=== PATIENT | female | born 1975 | race Caucasian/White ===

== ENCOUNTER → 2019-11-27 15:24 | Outpatient (CLI) | payer OTHER, SELFPAY ==
[2019-11-27 16:28] LABS: Cholesterol 222 mg/dL (140-199); HDL Cholesterol 86 mg/dL (40-60); LDL Cholesterol Calculated 93 mg/dL (<100); Triglycerides 214 mg/dL (35-150)
[2019-11-27 17:04] LABS: Vitamin D 25 Hydroxy (D3) 20.4 ng/mL (30.0-100.0)
[2019-11-27 17:18] LABS: TSH w/ Reflex to FT4 1.41 uIU/mL (0.47-4.68)
== END ==
PROVIDERS: PCP Student in an Organized Health Care Education/Training Program; Referring Provider Student in an Organized Health Care Education/Training Program; Visit Provider Student in an Organized Health Care Education/Training Program
DX: Z13.220 Encounter for screening for lipoid disorders (principal); E55.9 Vitamin D deficiency, unspecified; Z98.84 Bariatric surgery status; F41.1 Generalized anxiety disorder; N95.1 Menopausal and female climacteric states; R63.5 Abnormal weight gain
CPT/HCPCS: 36415; 80061; 82306; 84443

== ENCOUNTER → 2020-01-24 15:21 | Outpatient (CLI) | payer OTHER, SELFPAY ==
--- NOTE | 2020-01-24 15:22 | DI.MG.S_ITS ---
BILATERAL DIGITAL SCREENING MAMMOGRAM 3D/2D WITH CAD: 01/24/2020 CLINICAL: Routine screening. Family history of breast cancer. Comparison is made to exams dated: 12/17/2018 mammogram, 07/01/2017 mammogram, and 07/09/2015 mammogram - [facility]. The tissue of both breasts is heterogeneously dense. This may lower the sensitivity of mammography. Current study was also evaluated with a Computer Aided Detection (CAD) system. No significant masses, calcifications, or other findings are seen in either breast. There has been no significant interval change. IMPRESSION: NEGATIVE There is no mammographic evidence of malignancy. A 1 year screening mammogram is recommended. This exam was interpreted at Station ID: [id number]. NOTE: For mammograms, a report in lay terms will be sent to the patient. Approximately 15% of breast malignancies will not be visualized mammographically. In the management of a palpable breast mass, a negative mammogram must not discourage biopsy of a clinically suspicious lesion. Electronically Signed By: Alex Rodriguez M.D., jr/jadyn:01/24/2020 16:05:34 letter sent: Normal Exam ACR BI-RADS Category 1: Negative [id number]
== END ==
PROVIDERS: PCP Student in an Organized Health Care Education/Training Program; Referring Provider Student in an Organized Health Care Education/Training Program; Visit Provider Student in an Organized Health Care Education/Training Program
DX: Z12.31 Encounter for screening mammogram for malignant neoplasm of breast (principal); Z80.3 Family history of malignant neoplasm of breast
CPT/HCPCS: 77063; 77067

== ENCOUNTER 2020-01-29 12:46 | Emergency (ER) | payer OTHER, SELFPAY ==
[2020-01-29] VITALS (9 sets, daily range): BP systolic 131–157; BP diastolic 66–88; PULSE 86–108; RESP 18; TEMP 36.9; O2SAT 94–100; BMI 38.4
--- NOTE | 2020-01-29 | DI.US.S_ITS ---
PROCEDURE: US ABDOMEN LIMITED INDICATIONS: RLQ PAIN, APPENDIX TECHNIQUE: Real-time focused scanning was performed of the abdomen with attention to the appendix, with image documentation. COMPARISON: None. FINDINGS: Appendix visualization: Not seen Appendix measurements: N/A Associated findings: Echogenic fat: Absent Appendiceal compressibility: N/A Appendicoliths: N/A Nearby free fluid: Absent Lymphadenopathy: Absent Tenderness on exam: Absent IMPRESSION: Nonvisualization of the appendix. No secondary signs of acute appendicitis. Dictated by: Bakari Reed M.D. on 01/29/2020 at 15:07 Approved by: Bakari Reed M.D. on 01/29/2020 at 15:09
[2020-01-29 13:28] LABS: RBC Urine None Seen (0-5/HPF)
[2020-01-29 13:36] LABS: Bacteria Urine Many (>30); Squamous Epithelial Cell Urine >30 /HPF (0-5/HPF); WBC Urine 5-10/HPF (0-5/HPF)
[2020-01-29 13:37] LABS: Culture Indicated Urine Cult Not Indicated
--- NOTE | 2020-01-29 13:52 | DI.US.S_ITS ---
PROCEDURE: US PELVIC COMPLETE INDICATIONS: RLQ PAIN / CYST / TORSION TECHNIQUE: Real-time scanning was performed of the pelvic organs, with image documentation. Additional endovaginal scanning was necessary due to incomplete visualization of the adnexal and endometrial structures by transabdominal scanning. COMPARISON: None. FINDINGS: Transabdominal scanning: Limited scanning through the kidneys shows no hydronephrosis. No pathologic free abdominal or pelvic fluid. Endovaginal scanning: Uterus: Uterus is normal in size at 12.2 x 5.4 x 6.2 cm. It is somewhat heterogeneous in appearance. The endometrium measures 7.8 mm in combined thickness. Ovaries: Right ovary measures 10.0 x 6.5 x 9.0 cm. There is intra-ovarian flow noted by duplex. There are 2 focal probable cystic structures immediately adjacent to each other. There is a cyst with minimal low-level internal echoes measuring approximately 7.1 x 5.4 x 5.0 cm. Immediately to the adjacent to this is a 2nd spherical structure which may represent a hemorrhagic cyst versus an endometrioma measuring 5.9 x 5.2 x 4.5 cm. Left ovary not visualized. IMPRESSION: 1. The right ovary is quite enlarged, secondary to 2 separate structures immediately adjacent to each other. 1 structure is likely a cyst with minimal debris measuring 7.1 cm in maximum diameter. The 2nd structure may represent a hemorrhagic cyst versus endometrioma, measuring 5.9 cm in maximum diameter. 2. No evidence of right ovarian torsion. Comment: Repeat ultrasound in 6-8 weeks is suggested Dictated by: Bakari Reed M.D. on 01/29/2020 at 15:09 Approved by: Bakari Reed M.D. on 01/29/2020 at 15:21
[2020-01-29 14:00] LABS: Add Manual Diff / Slide Review NO; Basophils Absolute Auto 0 /uL (0-100); Basophils Percent Auto 0.5 % (0-2); Eosinophils Absolute Auto 0 /uL (0-450); Eosinophils Percent Auto 0.2 % (2-4); Hematocrit 34.3 % (36-46); Hemoglobin 11.1 g/dL (12.0-16.0); Lymphocytes Absolute Auto 1600 /uL (1100-4500); Lymphocytes Percent Auto 15.9 % (25-40); Mean Corpuscular HGB Conc 32.2 % (30-36); Mean Corpuscular Hemoglobin 26.6 PG (26-34); Mean Corpuscular Volume 82.6 fL (80-100); Monocytes Absolute Auto 700 /uL (0-900); Monocytes Percent Auto 6.6 % (3-14); Neutrophils Absolute Auto 7700 /uL (1500-7000); Neutrophils Percent Auto 76.8 % (50-75); Platelet Count 302 X10^3/uL (150-400); Red Blood Cell Count 4.15 X10^6/uL (4.0-5.2); Red Cell Distribution Width 16.2 % (11.6-14.8)
[2020-01-29] MEDS: SODIUM CHLORIDE 0.9% 1,000 ML 1000 ML IV (14:00)
[2020-01-29 14:12] LABS: Lactate (Lactic Acid) 1.3 mmol/L (0.7-2.1)
[2020-01-29 14:13] LABS: BUN Creatinine Ratio 11.1 (6-22); Blood Urea Nitrogen 9 mg/dL (7-17); Calcium 9.6 mg/dL (8.4-10.2); Carbon Dioxide 22 mmol/L (22-32); Chloride 106 mmol/L (98-107); Estimated Glomerular Filt Rate > 60.0 mL/min (>60); Glucose 103 mg/dL (70-100); HEMOLYSIS < 15 (0-50); Potassium 4.1 mmol/L (3.4-5.1); Sodium 136 mmol/L (137-145)
--- NOTE | 2020-01-29 15:02 | ED_ITS ---
HPI - Female Genitourinary <ALIE Gallagher - Last Filed: 01/29/20 23:41> General Chief complaint: Urogenital-Female Stated complaint: pelvic pain Time Seen by Provider: 01/29/20 13:22 Source: patient Mode of arrival: Ambulatory Limitations: no limitations History of Present Illness HPI Narrative: This is a 44 year female, nonsmoker, has history of gastric bypass presents to ED with chief complain of pelvic pain and reports right lower quadrant near groin constant pain which started at 3:00 a.m. this morning and lasted till 930. Then it recurred at 12:30 p.m. and now she has been having intermittent stabbing discomfort. Patient reports she had similar symptoms 1 year ago which lasted only for our and did not seek medical evaluation at that time. Patient denies fever, chills, nausea or vomiting. Patient denies chest pain, breathing difficulty or dizziness. Patient denies urinary symptoms or any unusual vaginal discharge. She states pain worsens with movement and nothing to alleviate the pain. LMP was 01/18/20 and it has been irregular last 1 year. Patient reports no chance of at this time. Related Data Previous Rx's Medication Instructions Recorded hydrocodone 5 mg-acetaminophen 325 1 tab PO TID PRN 7 Days #21 tab 01/30/20 mg tablet Allergies Allergy/AdvReac Type Severity Reaction Status Date / Time tetracycline Allergy Mild Vomiting Verified 01/30/20 13:51 Review of Systems <ALIE Gallagher - Last Filed: 01/29/20 23:41> Review of Systems Narrative: General: Denies fever, chills, fatigue, malaise, sweats. HEENT: Denies sinus pain, ear pain, sore throat, difficulty swallowing, dizziness. Respiratory: Denies dyspnea, cough, wheezing, hemoptysis, sputum. Cardiovascular: Denies chest pain, palpitations, orthopnea, edema. Gastrointestinal: See HPI : HPI Musculoskeletal: Denies weakness, joint pain or bony pain. Skin: Denies rash, skin lesions, or other. Neurologic: Denies weakness, headache, numbness, change in speech, confusion, seizures, incoordination. Psychiatric: No concerning psychosocial issues. 12-point review of systems is negative except for those stated above. Patient History <ALIE Gallagher - Last Filed: 01/29/20 23:41> Surgical History History of gastric bypass (Acute) Smoking Status: Never smoker alcohol intake frequency: 0-2 drinks per day Substance Use Type: does not use Exam <ALIE Gallagher - Last Filed: 01/29/20 23:41> Narrative Exam Narrative: GEN: Alert, oriented x 3, well appearing and nourished, and in no acute distress. Head: Normal cephalic, atraumatic. No scalp or temporal tenderness, palpable mass or rash. EYES: Pupils are equal, round, and reactive to light and accommodation. Extraocular muscles are intact bilaterally. There is no subconjunctival hemorrhage, exudate and sclera non-icteric. ENT: Hearing grossly intact. Nose without bleeding, purulent discharge or deviation. Mucous membrane moist, no mucosal lesion. Throat without erythema, tonsillar hypertrophy or exudate. Uvula in midline, airway patent. Neck: Trachea in midline. No JVD, non-tender without lymphadenopathy. No masses or thyroid megaly. Supple, non-tender and no meningeal signs. CARDIAC: Normal regular rate and rhythm without murmurs, gallops, or rubs. No chest wall tenderness. No peripheral edema, cyanosis or pallor. Capillary refill is less than 2 seconds. RESPIRATORY: Lungs are clear to auscultate bilaterally. No cough, wheezes, rales, or rhonchi. No stridor, respiratory distress, increase work of breathing, or accessary muscle used. ABD: Abdomen soft, tender to palpate in right lower abdomen near groin region with rebound tenderness. No guarding. Bowel sounds are normal in all 4 qu adrants. There is no palpable masses or organomegaly. Positive Rovsing sign when palpated left quadrant. EXT: Full painless ROM of all extremities with no loss of sensation, strength, effusion or edema. SKIN: Warm, dry, normal color for patient. No erythema, lesions or rash over visible areas. BACK: Nontender without deformity or crepitance. No flank tenderness. NEUROLOGICAL: Alert and oriented to place, time and person. Sensation and motor function intact bilaterally. No facial droops, dysphasia. PSYCHIATRIC: Good judgement and reason, without hallucinations, abnormal affect or abnormal behaviors during the examination. Patient is not suicidal. Initial Vital Signs Initial Vital Signs: Vital Signs Temperature 98.5 F 01/29/20 13:04 Pulse Rate 108 H 01/29/20 13:04 Respiratory Rate 18 01/29/20 13:04 Blood Pressure 142/68 H 01/29/20 13:04 Pulse Oximetry 100 01/29/20 13:04 <Ariel Cristina MD - Last Filed: 02/04/20 07:26> Initial Vital Signs Initial Vital Signs: Vital Signs Temperature 98.5 F 01/29/20 13:04 Pulse Rate 108 H 01/29/20 13:04 Respiratory Rate 18 01/29/20 13:04 Blood Pressure 142/68 H 01/29/20 13:04 Pulse Oximetry 100 01/29/20 13:04 Scores <ALIE Gallagher - Last Filed: 01/29/20 23:41> GCS David coma scale eye opening: Spontaneous [place] coma scale verbal response: Orientated [place] coma scale motor response: Obey commands David coma scale total score: 15 qSOFA Altered Mental Status (GCS <15): No Respiratory rate greater than/equal to 22: No Systolic blood pressure less than or equal to 100: No qSOFA Total: 0 0-1 Not High Risk 1-3 High risk Course <ALIE Gallagher - Last Filed: 01/29/20 23:41> Orders Ordered: Discontinued Medications Sodium Chloride (Normal Saline 0.9%) 1,000 mls @ 1,000 mls/hr IV BOLUS ONE Stop: 01/29/20 14:51 Last Infusion: 01/29/20 15:20 Dose: 0 mls/hr Documented by: Admin: 01/29/20 14:00 Dose: 1,000 mls/hr Documented by: KARINA Vital Signs Vital signs: Vital Signs - 8 hr 01/29/20 16:00 01/29/20 16:30 01/29/20 17:00 Pulse Rate 90 90 86 Blood Pressure 131/66 Pulse Oximetry 97 98 100 <Ariel Cristina MD - Last Filed: 02/04/20 07:26> Orders Ordered: Discontinued Medications Sodium Chloride (Normal Saline 0.9%) 1,000 mls @ 1,000 mls/hr IV BOLUS ONE Stop: 01/29/20 14:51 Last Infusion: 01/29/20 15:20 Dose: 0 mls/hr Documented by: Admin: 01/29/20 14:00 Dose: 1,000 mls/hr Documented by: KARINA Vital Signs Vital signs: Vital Signs - 8 hr 01/29/20 16:00 01/29/20 16:30 01/29/20 17:00 Pulse Rate 90 90 86 Blood Pressure 131/66 Pulse Oximetry 97 98 100 MDM - Female Genitourinary <ALIE Gallagher - Last Filed: 01/29/20 23:41> Differential Diagnosis Differential diagnosis: Likely urinary tract infection, ovarian cyst, cystitis and other (Ovarian torsion, ovarian cyst,) Medical Records Attestation: I reviewed the patient's medical records. Lab Data Attestation: I reviewed the patient's lab results. Result diagrams: 01/29/20 13:45 01/29/20 13:45 Labs: Lab Results 01/29/20 01/29/20 01/29/20 Range/Units 13:15 13:45 13:45 WBC 10.0 (4.5-11.0) X10^3/uL RBC 4.15 (4.0-5.2) X10^6/uL Hgb 11.1 L (12.0-16.0) g/dL Hct 34.3 L (36-46) % MCV 82.6 (80-100) fL MCH 26.6 (26-34) PG MCHC 32.2 (30-36) % RDW 16.2 H (11.6-14.8) % Plt Count 302 (150-400) X10^3/uL Neut % (Auto) 76.8 H (50-75) % Lymph % (Auto) 15.9 L (25-40) % [place] % (Auto) 6.6 (3-14) % Eos % (Auto) 0.2 L (2-4) % Baso % (Auto) 0.5 (0-2) % Neut # (Auto) 7700 H (4474-8957) /uL Lymph # (Auto) 1600 (5016-2928) /uL [place] # (Auto) 700 (0-900) /uL Eos # (Auto) 0 (0-450) /uL Baso # (Auto) 0 (0-100) /uL Sodium 136 L (137-145) mmol/L Potassium 4.1 (3.4-5.1) mmol/L Chloride 106 (98-107) mmol/L Carbon Dioxide 22 (22-32) mmol/L BUN 9 (7-17) mg/dL Creatinine 0.81 (0.52-1.04) mg/dL Estimated GFR > 60.0 (>60) mL/min BUN/Creatinine Ratio 11.1 (6-22) Glucose 103 H (70-100) mg/dL Lactate (0.7-2.1) mmol/L Calcium 9.6 (8.4-10.2) mg/dL Urine RBC None seen (0-5/HPF) Urine WBC 5-10/hpf H (0-5/HPF) Ur Squamous Epith Cells >30 /hpf H (0-5/HPF) Urine Bacteria Many (>30) H (None) Ur Culture Indicated? Cult not indicated 01/29/20 Range/Units 13:45 WBC (4.5-11.0) X10^3/uL RBC (4.0-5.2) X10^6/uL Hgb (12.0-16.0) g/dL Hct (36-46) % MCV (80-100) fL MCH (26-34) PG MCHC (30-36) % RDW (11.6-14.8) % Plt Count (150-400) X10^3/uL Neut % (Auto) (50-75) % Lymph % (Auto) (25-40) % [place] % (Auto) (3-14) % Eos % (Auto) (2-4) % Baso % (Auto) (0-2) % Neut # (Auto) (3787-2941) /uL Lymph # (Auto) (3990-3655) /uL [place] # (Auto) (0-900) /uL Eos # (Auto) (0-450) /uL Baso # (Auto) (0-100) /uL Sodium (137-145) mmol/L Potassium (3.4-5.1) mmol/L Chloride (98-107) mmol/L Carbon Dioxide (22-32) mmol/L BUN (7-17) mg/dL Creatinine (0.52-1.04) mg/dL Estimated GFR (>60) mL/min BUN/Creatinine Ratio (6-22) Glucose (70-100) mg/dL Lactate 1.3 (0.7-2.1) mmol/L Calcium (8.4-10.2) mg/dL Urine RBC (0-5/HPF) Urine WBC (0-5/HPF) Ur Squamous Epith Cells (0-5/HPF) Urine Bacteria (None) Ur Culture Indicated? Point of Care Testing Test Results Negative Urine Dip Bedside Urine Glucose Negative Bedside Urine Bilirubin + 1 Bedside Urine Ketone +/- 5 Urine Specific [place] 1.030 Bedside Urine Occult Blood +/- Bedside Urine pH 5.5 Bedside Urine Protein +/- 15 Bedside Urine Urobilinogen - Negative Bedside Urine Nitrite - Negative Bedside Urine Leukocytes +/- 15 Esterase Imaging Data US-Pelvic: Radiologist's Impression: [address] [address] Ultrasound Report Signed Patient: Adele Coburn AMR#: [id number] : 1975Acct:[id number] Age/Sex: 44 / FDate of Service: 01/29/20 Loc: ED Accession Number: [id number] Procedure: US pelvic complete Ordering Provider: Gomez Jurado PROCEDURE: US PELVIC COMPLETE INDICATIONS: RLQ PAIN / CYST / TORSION TECHNIQUE: Real-time scanning was performed of the pelvic organs, with image documentation. Additional endovaginal scanning was necessary due to incomplete visualization of the adnexal and endometrial structures by transabdominal scanning. COMPARISON: None. FINDINGS: Transabdominal scanning: Limited scanning through the kidneys shows no hydronephrosis. No pathologic free abdominal or pelvic fluid. Endovaginal scanning: Uterus: Uterus is normal in size at 12.2 x 5.4 x 6.2 cm. It is somewhat heterogeneous in appearance. The endometrium measures 7.8 mm in combined thickness. Ovaries: Right ovary measures 10.0 x 6.5 x 9.0 cm. There is intra-ovarian flow noted by duplex. There are 2 focal probable cystic structures immediately adjacent to each other. There is a cyst with minimal low-level internal echoes measuring approximately 7.1 x 5.4 x 5.0 cm. Immediately to the adjacent to this is a 2nd spherical structure which may represent a hemorrhagic cyst versus an endometrioma measuring 5.9 x 5.2 x 4.5 cm. Left ovary not visualized. IMPRESSION: 1. The right ovary is quite enlarged, secondary to 2 separate structures immediately adjacent to each other. 1 structure is likely a cyst with minimal debris measuring 7.1 cm in maximum diameter. The 2nd structure may represent a hemorrhagic cyst versus endometrioma, measuring 5.9 cm in maximum diameter. 2. No evidence of right ovarian torsion. Comment: Repeat ultrasound in 6-8 weeks is suggested Dictated by: Bakari Reed M.D. on 01/29/2020 at 15:09 Approved by: Bakari Reed M.D. on 01/29/2020 at 15:21 [facility] Narrative Medical decision making narrative: This is a 44 year female who presents to ED with chief complain of pelvic pain and describing pain near right groin area since early this morning at 3:00 a.m.. She does not have additional urinary symptoms, or unusual vaginal discharge. She does not endorse constitutional symptoms. UA test indicates positive for urine leukocytes +/-15 with negative urine nitrite. Micro urine test shows 5-10 hpf WBC with many bacteria and >30 squamous epithelia cells which is likely contaminated sample. Urine culture is pending. No leukocytosis but very mildly elevated neutrophils. Unremarkable chemistry test. The patient received 1 L of normal saline infusion this patient was slightly tachycardia. Patient declined pain medications at this time. Blood pressure was mildly elevated. Patient is afebrile. Pelvic ultrasound shows enlarged two right side ovaries measuring 10. x 6.5 x 9.0 cm and additional 2 focal probably cystic structures immediately adjacent to each other measuring 7.1 x 5.4 x 5.0 and 5.9 x 5.2 x 4.5 cm which appears to be hemorrhagic cyst vs. endometrioma. There is no evidence of right ovarian cyst appreciated. He was recommended to repeat ultrasound in 6-8 weeks. Findings were shared with the patient and advised to follow-up with Dr. Pederson for repeat US and possible a referral to [facility] specialist. No antibiotic med ication has been prescribed for positive urine test and will wait for the urine culture. Patient discharged to home with small amount of [place] for severe pain and advised to take [id number] Tylenol and Motrin otherwise. Return precautions were discussed with patient and patient verbalized understanding and treatment plan. <Ariel Cristina MD - Last Filed: 02/04/20 07:26> Lab Data Labs: Lab Results 01/29/20 01/29/20 01/29/20 Range/Units 13:15 13:45 13:45 WBC 10.0 (4.5-11.0) X10^3/uL RBC 4.15 (4.0-5.2) X10^6/uL Hgb 11.1 L (12.0-16.0) g/dL Hct 34.3 L (36-46) % MCV 82.6 (80-100) fL MCH 26.6 (26-34) PG MCHC 32.2 (30-36) % RDW 16.2 H (11.6-14.8) % Plt Count 302 (150-400) X10^3/uL Neut % (Auto) 76.8 H (50-75) % Lymph % (Auto) 15.9 L (25-40) % [place] % (Auto) 6.6 (3-14) % Eos % (Auto) 0.2 L (2-4) % Baso % (Auto) 0.5 (0-2) % Neut # (Auto) 7700 H (3060-4945) /uL Lymph # (Auto) 1600 (9380-4444) /uL [place] # (Auto) 700 (0-900) /uL Eos # (Auto) 0 (0-450) /uL Baso # (Auto) 0 (0-100) /uL Sodium 136 L (137-145) mmol/L Potassium 4.1 (3.4-5.1) mmol/L Chloride 106 (98-107) mmol/L Carbon Dioxide 22 (22-32) mmol/L BUN 9 (7-17) mg/dL Creatinine 0.81 (0.52-1.04) mg/dL Estimated GFR > 60.0 (>60) mL/min BUN/Creatinine Ratio 11.1 (6-22) Glucose 103 H (70-100) mg/dL Lactate (0.7-2.1) mmol/L Calcium 9.6 (8.4-10.2) mg/dL Urine RBC None seen (0-5/HPF) Urine WBC 5-10/hpf H (0-5/HPF) Ur Squamous Epith Cells >30 /hpf H (0-5/HPF) Urine Bacteria Many (>30) H (None) Ur Culture Indicated? Cult not indicated 01/29/20 Range/Units 13:45 WBC (4.5-11.0) X10^3/uL RBC (4.0-5.2) X10^6/uL Hgb (12.0-16.0) g/dL Hct (36-46) % MCV (80-100) fL MCH (26-34) PG MCHC (30-36) % RDW (11.6-14.8) % Plt Count (150-400) X10^3/uL Neut % (Auto) (50-75) % Lymph % (Auto) (25-40) % [place] % (Auto) (3-14) % Eos % (Auto) (2-4) % Baso % (Auto) (0-2) % Neut # (Auto) (3782-6420) /uL Lymph # (Auto) (8933-2690) /uL [place] # (Auto) (0-900) /uL Eos # (Auto) (0-450) /uL Baso # (Auto) (0-100) /uL Sodium (137-145) mmol/L Potassium (3.4-5.1) mmol/L Chloride (98-107) mmol/L Carbon Dioxide (22-32) mmol/L BUN (7-17) mg/dL Creatinine (0.52-1.04) mg/dL Estimated GFR (>60) mL/min BUN/Creatinine Ratio (6-22) Glucose (70-100) mg/dL Lactate 1.3 (0.7-2.1) mmol/L Calcium (8.4-10.2) mg/dL Urine RBC (0-5/HPF) Urine WBC (0-5/HPF) Ur Squamous Epith Cells (0-5/HPF) Urine Bacteria (None) Ur Culture Indicated? Point of Care Testing Test Results Negative Urine Dip Bedside Urine Glucose Negative Bedside Urine Bilirubin + 1 Bedside Urine Ketone +/- 5 Urine Specific [place] 1.030 Bedside Urine Occult Blood +/- Bedside Urine pH 5.5 Bedside Urine Protein +/- 15 Bedside Urine Urobilinogen - Negative Bedside Urine Nitrite - Negative Bedside Urine Leukocytes +/- 15 Esterase Discharge Plan Departure Patient Disposition: Home Clinical Impression: Right lower quadrant abdominal pain, Ovarian cyst Discharge Date/Time: 01/29/20 17:09 Instructions: DI for Ovarian Cyst, DI for Abdominal Pain-Adult Activity Restrictions/Additional Instructions: You have been diagnosed with [right groin pain and ovarian cyst. Possible asymptomatic UTI and Urine culture is pending. Patient rather wait urine culture results for possible antibiotic medication treatment. According to pelvic ultrasound test, there are a couple of large ovarian cysts appreciated without torsion. It was recommended to repeat ultrasound in 6-8 weeks. Your blood test results are are assuring.]. What to do: *Take your medications as directed. You can take [id number] Tylenol 650- 1000 mg as needed for pain up to 3 to 4 times a day. Ibuprofen 400 mg up to 3 to 4 times a day as needed for pain with food to decrease GI irritation. *Follow up with your primary care provider in 2-3 days, call for an appointment. Let them know you were seen in the ED and that we asked you to be seen in follow up. *Return to ED if you have any new, worsening, or concerning symptoms, such as [chest pain, breathing difficulty, unable to tolerate fluids, fever, back or worsening pain, or any acute concerns]. Prescriptions: No Action hydrocodone-acetaminophen [[place]] 5-325 mg tablet 1 tab PO TID PRN (Reason: pain) 7 Days Qty: 21 RF: 0 Referrals: Jhon Pederson MD [Primary Care Provider] - <Ariel Cristina MD - Last Filed: 02/04/20 07:26> [facility] Attestation: I was immediately available in the department for consultation. This documentation has been reviewed and I agree with assessment and plan. Supervised by Ariel Cristina MD
== END 2020-01-29 17:09 | disposition home or self-care (01) ==
PROVIDERS: Emergency Provider Nurse Practitioner Family; PCP Student in an Organized Health Care Education/Training Program
DX: N83.201 Unspecified ovarian cyst, right side (principal); R10.31 Right lower quadrant pain; R00.0 Tachycardia, unspecified; R03.0 Elevated blood-pressure reading, without diagnosis of hypertension
CPT/HCPCS: 36415; 76705; 76830; 76856; 80048; 81003; 81015; 81025; 83605; 85025; 87077; 87086; 87147; 87186; 96360; 99284

== ENCOUNTER 2020-07-15 12:35 | Emergency (ER) | payer OTHER, SELFPAY ==
[2020-07-15] VITALS (9 sets, daily range): BP systolic 137–157; BP diastolic 69–94; PULSE 96–115; RESP 14–16; TEMP 37; O2SAT 92–100; BMI 38.4
--- NOTE | 2020-07-15 13:28 | PC.NURSE ---
Pt requested no IV lab draw only.
--- NOTE | 2020-07-15 13:30 | PC.NURSE ---
Pt refuses test, states she is not .
[2020-07-15 13:46] LABS: Add Manual Diff / Slide Review NO; Basophils Absolute Auto 0 /uL (0-100); Basophils Percent Auto 0.3 % (0-2); Eosinophils Absolute Auto 0 /uL (0-450); Eosinophils Percent Auto 0.5 % (2-4); Hemoglobin 10.4 g/dL (12.0-16.0); Lymphocytes Absolute Auto 1800 /uL (1100-4500); Lymphocytes Percent Auto 21.6 % (25-40); Mean Corpuscular HGB Conc 31.5 % (30-36); Mean Corpuscular Hemoglobin 25.6 PG (26-34); Mean Corpuscular Volume 81.3 fL (80-100); Monocytes Absolute Auto 700 /uL (0-900); Monocytes Percent Auto 7.7 % (3-14); Neutrophils Absolute Auto 5900 /uL (1500-7000); Neutrophils Percent Auto 69.9 % (50-75); Platelet Count 323 X10^3/uL (150-400); Red Blood Cell Count 4.07 X10^6/uL (4.0-5.2); Red Cell Distribution Width 16.4 % (11.6-14.8); White Blood Cell Count 8.4 X10^3/uL (4.5-11.0)
[2020-07-15 14:10] LABS: Alanine Aminotransferase 19 IU/L (<35); Albumin Globulin Ratio 1.3 (1.0-2.8); Alkaline Phosphatase 90 U/L (38-126); Aspartate Aminotransferase 22 IU/L (14-36); BUN Creatinine Ratio 14.8 (6-22); Bilirubin Total 0.3 mg/dL (0.2-1.3); Blood Urea Nitrogen 12 mg/dL (7-17); Calcium 8.9 mg/dL (8.4-10.2); Carbon Dioxide 23 mmol/L (22-32); Chloride 106 mmol/L (98-107); Estimated Glomerular Filt Rate > 60.0 mL/min (>60); Glucose 104 mg/dL (70-100); HEMOLYSIS < 15 (0-50); Lipase 92 U/L (23-300); Sodium 135 mmol/L (137-145)
--- NOTE | 2020-07-15 14:25 | ED.ABDPAIN ---
HPI - Abdominal Pain General Chief Complaint: Abdominal Pain Stated Complaint: pain in right side Time Seen by Provider: 07/15/20 13:37 Source: patient Mode of arrival: Ambulatory Limitations: no limitations History of Present Illness HPI narrative: This is a 44-year-old female who comes in with complaint of right upper quadrant abdominal pain patient states has been present for 1-2 months. It has been coming persistent and intense over the last several days. She states when she drinks but seems to exacerbate the symptoms somewhat but sometimes it seems to be worsen irregardless of alcohol intake. Nothing seems to alleviate them. Patient states no fevers, she denies any nausea or vomiting. She denies any back or flank pain. She denies any diarrhea, constipation other issues with bowel movements. She denies any urgency, frequency or dysuria. She denies any vaginal bleeding or discharge. She does have a history of gastric bypass. She denies any other medical issues besides vitamin-D deficiency. She denies any allergies to medications. No tobacco. She drinks 1-3 alcoholic drinks 5-7 days of the week. No recreational drugs. She follows with her primary care doctor Dacia. Related Data Allergies Allergy/AdvReac Type Severity Reaction Status Date / Time tetracycline Allergy Mild Vomiting Verified 07/15/20 13:13 Review of Systems Review of Systems ROS Unobtainable: All systems reviewed & are unremarkable except as noted in HPI and below Patient History Surgical History History of gastric bypass Social History Smoking Status: Never smoker Smoking Status: Never smoker alcohol intake frequency: 0-2 drinks per day Substance Use Type: does not use Exam Narrative Exam Narrative: GENERAL: Alert and oriented x three, well-nourished female in mild distress HEENT: Head normocephalic, atraumatic, EOMI, pupils reactive, face symmetric, moist mucous membranes NECK: Supple, full range of motion CARDIOVASCULAR: Regular rate and rhythm without murmurs, rubs or gallops. RESPIRATORY: Breath sounds equal bilaterally, no wheezes rales or rhonchi. ABDOMEN: Soft, positive for right upper quadrant. Normoactive bowel sounds all 4 quadrants. No guarding or rebound, rigidity, no mass : Mild right CVA tenderness, no left CVA tenderness. EXTREMITIES: Normal range of motion, no clubbing or edema. Neurovascularly intact NEUROLOGICAL: Cranial nerves II through XII grossly intact. Moving all extremities SKIN: Warm, dry, no petechiae, no rashes or lesions. Initial Vital Signs Initial Vital Signs: Vital Signs Temperature 98.6 F 07/15/20 13:11 Pulse Rate 115 H 07/15/20 13:11 Respiratory Rate 16 07/15/20 13:11 Blood Pressure 149/92 H 07/15/20 13:11 Pulse Oximetry 98 07/15/20 13:11 Course Orders Ordered: ED Orders 07/15/20 13:38 Complete Blood Count AUTO DIFF Stat Comprehensive Metabolic Panel Stat Lipase Stat 07/15/20 14:46 US abdomen limited Stat Vital Signs Vital signs: Vital Signs - 8 hr 07/15/20 13:11 07/15/20 13:20 07/15/20 13:30 Temperature 98.6 F Pulse Rate 115 H 113 H 107 H Respiratory Rate 16 16 14 Blood Pressure 149/92 H 150/94 H 146/82 H Pulse Oximetry 98 98 97 07/15/20 14:00 07/15/20 14:30 07/15/20 15:00 Temperature Pulse Rate 102 H 100 H 101 H Respiratory Rate Blood Pressure 139/84 148/85 H 146/69 H Pulse Oximetry 95 92 96 07/15/20 15:30 07/15/20 16:00 07/15/20 16:26 Temperature Pulse Rate 105 H 96 H 102 H Respiratory Rate 16 Blood Pressure 157/73 H 137/77 142/87 H Pulse Oximetry 94 100 99 MDM - Abdominal Pain Lab Data Attestation: I reviewed the patient's lab results. Result diagrams: 07/15/20 13:38 07/15/20 13:38 Labs: Lab Results 07/15/20 07/15/20 Range/Units 13:38 13:38 WBC 8.4 (4.5-11.0) X10^3/uL RBC 4.07 (4.0-5.2) X10^6/uL Hgb 10.4 L (12.0-16.0) g/dL Hct 33.0 L (36-46) % MCV 81.3 (80-100) fL MCH 25.6 L (26-34) PG MCHC 31.5 (30-36) % RDW 16.4 H (11.6-14.8) % Plt Count 323 (150-400) X10^3/uL Neut % (Auto) 69.9 (50-75) % Lymph % (Auto) 21.6 L (25-40) % Robeson % (Auto) 7.7 (3-14) % Eos % (Auto) 0.5 L (2-4) % Baso % (Auto) 0.3 (0-2) % Neut # (Auto) 5900 (0566-0205) /uL Lymph # (Auto) 1800 (9547-4071) /uL Robeson # (Auto) 700 (0-900) /uL Eos # (Auto) 0 (0-450) /uL Baso # (Auto) 0 (0-100) /uL Sodium 135 L (137-145) mmol/L Potassium 4.0 (3.4-5.1) mmol/L Chloride 106 (98-107) mmol/L Carbon Dioxide 23 (22-32) mmol/L BUN 12 (7-17) mg/dL Creatinine 0.81 (0.52-1.04) mg/dL Estimated GFR > 60.0 (>60) mL/min BUN/Creatinine Ratio 14.8 (6-22) Glucose 104 H (70-100) mg/dL Calcium 8.9 (8.4-10.2) mg/dL Total Bilirubin 0.3 (0.2-1.3) mg/dL AST 22 (14-36) IU/L ALT 19 (<35) IU/L Alkaline Phosphatase 90 (38-126) U/L Total Protein 7.0 (6.3-8.2) g/dL Albumin 4.0 (3.5-5.0) g/dL Globulin 3.0 (1.7-4.1) g/dL Albumin/Globulin Ratio 1.3 (1.0-2.8) Lipase 92 (23-300) U/L Point of care testing: Urine Dip Bedside Urine Glucose Negative Bedside Urine Bilirubin - Negative Bedside Urine Ketone +/- 5 Urine Specific [place] 1.030 Bedside Urine Occult Blood - Negative Bedside Urine pH 6 Bedside Urine Protein - Negative Bedside Urine Urobilinogen - Negative Bedside Urine Nitrite - Negative Bedside Urine Leukocytes - Negative Esterase Imaging Data US - abdomen: Radiologist's Impression: [address], [place] [id number] ReportSigned Patient: Adele Coburn [facility]#: [id number]: 1975Acct:[id number]/Sex: 44 / FDate of Service: 07/15/20Loc: EDAccession Number: [id number] Procedure: US abdomen limited Ordering Provider: Mica Bingham D.O. PROCEDURE: US ABDOMEN LIMITED INDICATIONS: RUQ/flank abdominal pain TECHNIQUE: Real-time focused scanning was performed of the abdomen, with image documentation. COMPARISON: [facility], , US ABDOMEN LIMITED, 01/29/2020, 14:13. FINDINGS: There are multiple mobile gallstones present in the gallbladder. There is no gallbladder wall thickening or sonographic Villagran sign. No fluid around the gallbladder. Diffuse increased echogenicity of the liver likely represents hepatic steatosis. No dilated ducts. Common duct measures 3.6 mm. IMPRESSION: 1. Cholelithiasis without evidence of acute cholecystitis. 2. Hepatic steatosis. Dictated by: Bakari Reed M.D. on 07/15/2020 at 15:56 Approved by: Bakari Reed M.D. on 07/15/2020 at 15:59 MDM Narrative Medical decision making narrative: Patient politely refuses urine , she states and that she there is no way she can possibly be . She was frustrated from prior visit where she had multiple charges is trying to medicate expense. She is agreeable to a point of care urine. Labs show a stable anemia, no leukocytosis. Chemistry shows a mild hyponatremia 135. No LFT changes or lipase changes. We did discuss that I would recommend at least getting a right upper quadrant ultrasound but she is tender she may have gallstones although my suspicion for infection is low. Patient is agreeable to this. She defers any pain medication currently. US shows gallstones, fatty liver which patient can follow up with general surgery for possible cholecystectomy. Patient already aware of hepatic steatosis. Discharge Plan Departure Patient Disposition: Home Clinical Impression: Abdominal pain, Cholelithiasis, Hepatic steatosis Instructions: DI for Gallstones Activity Restrictions/Additional Instructions: Follow-up with your physician in the next week. Your imaging does show gallstones follow-up with general surgery if you are interested in having your gallbladder removed. Your imaging also shows hepatics steatosis or fatty liver. You may take Tylenol up to a 1000 mg every hours as needed for pain and or ibuprofen up to 800 mg every 8 hours as needed for pain. I would recommend decreasing your alcohol intake if this seems to exacerbate your symptoms. Return to the ER for fevers, lightheadedness or passing out, rapidly worsening abdominal, flank or back pain, persistent vomiting, black or bloody stools, difficulty or inability to urinate or other new or concerning symptoms. Referrals: Jhon Pederson MD [Primary Care Provider] -
--- NOTE | 2020-07-15 14:46 | DI.US.S_ITS ---
PROCEDURE: US ABDOMEN LIMITED INDICATIONS: RUQ/flank abdominal pain TECHNIQUE: Real-time focused scanning was performed of the abdomen, with image documentation. COMPARISON: [facility], , US ABDOMEN LIMITED, 01/29/2020, 14:13. FINDINGS: There are multiple mobile gallstones present in the gallbladder. There is no gallbladder wall thickening or sonographic Villagran sign. No fluid around the gallbladder. Diffuse increased echogenicity of the liver likely represents hepatic steatosis. No dilated ducts. Common duct measures 3.6 mm. IMPRESSION: 1. Cholelithiasis without evidence of acute cholecystitis. 2. Hepatic steatosis. Dictated by: Bakari Reed M.D. on 07/15/2020 at 15:56 Approved by: Bakari Reed M.D. on 07/15/2020 at 15:59
== END 2020-07-15 16:44 | disposition home or self-care (01) ==
PROVIDERS: Emergency Provider Emergency Medicine; PCP Student in an Organized Health Care Education/Training Program
DX: K80.20 Calculus of gallbladder without cholecystitis without obstruction (principal); R10.11 Right upper quadrant pain; K76.0 Fatty (change of) liver, not elsewhere classified
CPT/HCPCS: 36415; 76705; 80053; 81003; 83690; 85025; 99283; 99284

== ENCOUNTER → 2020-08-11 16:13 | Outpatient (CLI) | payer OTHER, SELFPAY ==
[2020-08-11] MEDS: COVID-19 VACC #1, MRNA(MOD) 100 MCG/0.5 ML VIAL IM (16:24)
== END ==
PROVIDERS: Visit Provider Internal Medicine
DX: Z23 Encounter for immunization (principal)
CPT/HCPCS: 0011A; 91301

== ENCOUNTER → 2020-09-04 16:07 | Outpatient (CLI) | payer OTHER, SELFPAY ==
[2020-09-04] MEDS: COVID-19 VACC #2, MRNA(MOD) 100 MCG/0.5 ML VIAL IM (16:13)
== END ==
PROVIDERS: PCP Student in an Organized Health Care Education/Training Program; Visit Provider Internal Medicine
DX: Z23 Encounter for immunization (principal)
CPT/HCPCS: 0012A; 91301

== ENCOUNTER → 2021-03-01 17:00 | Outpatient (CLI) | payer OTHER, SELFPAY ==
--- NOTE | 2021-03-01 17:03 | DI.MG.S_ITS ---
BILATERAL DIGITAL SCREENING MAMMOGRAM 3D/2D WITH CAD: 03/01/2021 CLINICAL: Routine screening. Family history of breast cancer. Comparison is made to exams dated: 01/24/2020 mammogram - [facility], 12/17/2018 mammogram, and 07/01/2017 mammogram - [facility]. The tissue of both breasts is heterogeneously dense. This may lower the sensitivity of mammography. Current study was also evaluated with a Computer Aided Detection (CAD) system. No significant masses, calcifications, or other findings are seen in either breast. There has been no significant interval change. IMPRESSION: NEGATIVE There is no mammographic evidence of malignancy. A 1 year screening mammogram is recommended. This exam was interpreted at Station ID: [id number]. NOTE: For mammograms, a report in lay terms will be sent to the patient. Approximately 15% of breast malignancies will not be visualized mammographically. In the management of a palpable breast mass, a negative mammogram must not discourage biopsy of a clinically suspicious lesion. Electronically Signed By: Jv Dickey acr/penrad:03/01/2021 17:44:35 letter sent: Normal Exam ACR BI-RADS Category 1: Negative 3341F
== END ==
PROVIDERS: PCP Student in an Organized Health Care Education/Training Program; Referring Provider Student in an Organized Health Care Education/Training Program; Visit Provider Student in an Organized Health Care Education/Training Program
DX: Z12.31 Encounter for screening mammogram for malignant neoplasm of breast (principal); Z80.3 Family history of malignant neoplasm of breast
CPT/HCPCS: 77063; 77067

== ENCOUNTER → 2022-03-05 09:55 | Outpatient (CLI) | payer OTHER, SELFPAY ==
--- NOTE | 2022-03-05 09:56 | DI.MG.S_ITS ---
BILATERAL DIGITAL SCREENING MAMMOGRAM 3D/2D WITH CAD: 03/05/2022 CLINICAL: Routine screening. Family history of breast cancer. Comparison is made to exams dated: 03/01/2021 mammogram, 01/24/2020 mammogram - [facility], and 12/17/2018 mammogram - [facility]. There are scattered areas of fibroglandular density in both breasts (category b / 25%-50% glandular tissue). Current study was also evaluated with a Computer Aided Detection (CAD) system. No significant masses, calcifications, or other findings are seen in either breast. There has been no significant interval change. IMPRESSION: NEGATIVE There is no mammographic evidence of malignancy. A 1 year screening mammogram is recommended. Based on the Tyrer Cuzick model (a risk assessment model) the patient's lifetime risk is 13.2% and her 10 year risk is 2.8%. According to the ACR, ACS, and NCCN guidelines, an annual breast MRI exam along with mammogram is recommended if the patient's lifetime risk is 20% or greater. This exam was interpreted at Station ID: [id number]. NOTE: For mammograms, a report in lay terms will be sent to the patient. Approximately 15% of breast malignancies will not be visualized mammographically. In the management of a palpable breast mass, a negative mammogram must not discourage biopsy of a clinically suspicious lesion. Electronically Signed By: Ciro bender/jadyn:03/07/2022 08:08:18 letter sent: Normal Exam ACR BI-RADS Category 1: Negative 3341F
== END ==
PROVIDERS: PCP Student in an Organized Health Care Education/Training Program; Referring Provider Student in an Organized Health Care Education/Training Program; Visit Provider Student in an Organized Health Care Education/Training Program
DX: Z12.31 Encounter for screening mammogram for malignant neoplasm of breast (principal); Z80.3 Family history of malignant neoplasm of breast
CPT/HCPCS: 77063; 77067

== ENCOUNTER → 2022-03-18 15:51 | Outpatient (CLI) | payer OTHER, SELFPAY | PROVIDERS: PCP Student in an Organized Health Care Education/Training Program; Referring Provider Obstetrics & Gynecology; Visit Provider Obstetrics & Gynecology | DX: N83.8 Other noninflammatory disorders of ovary, fallopian tube and broad ligament (principal) | CPT/HCPCS: 36415; 86304 ==

== ENCOUNTER → 2022-05-05 10:04 | Outpatient (CLI) | payer OTHER, SELFPAY ==
[2022-05-05 12:05] LABS: Add Manual Diff / Slide Review NO; Basophils Absolute Auto 100 /uL (0-100); Basophils Percent Auto 0.9 % (0-2); Eosinophils Absolute Auto 200 /uL (0-450); Eosinophils Percent Auto 2.5 % (2-4); Hematocrit 34.3 % (36-46); Hemoglobin 10.7 g/dL (12.0-16.0); Lymphocytes Absolute Auto 2000 /uL (1100-4500); Lymphocytes Percent Auto 28.6 % (25-40); Mean Corpuscular HGB Conc 31.1 % (30-36); Mean Corpuscular Hemoglobin 23.9 PG (26-34); Mean Corpuscular Volume 76.7 fL (80-100); Monocytes Absolute Auto 500 /uL (0-900); Monocytes Percent Auto 7.7 % (3-14); Neutrophils Absolute Auto 4200 /uL (1500-7000); Neutrophils Percent Auto 60.3 % (50-75); Platelet Count 359 X10^3/uL (150-400); Red Blood Cell Count 4.47 X10^6/uL (4.0-5.2); Red Cell Distribution Width 18.1 % (11.6-14.8)
[2022-05-05 12:40] LABS: Alanine Aminotransferase 24 IU/L (<35); Albumin 4.4 g/dL (3.5-5.0); Albumin Globulin Ratio 1.3 (1.0-2.8); Alkaline Phosphatase 88 U/L (38-126); Aspartate Aminotransferase 23 IU/L (14-36); Bilirubin Total 0.4 mg/dL (0.2-1.3); Blood Urea Nitrogen 10 mg/dL (7-17); Calcium 9.1 mg/dL (8.4-10.2); Carbon Dioxide 25 mmol/L (22-32); Chloride 105 mmol/L (98-107); Estimated Glomerular Filt Rate > 60 mL/min (>60); Globulin 3.4 g/dL (1.7-4.1); Glucose 108 mg/dL (70-100); HEMOLYSIS < 15 (0-50); Lipase 111 U/L (23-300); Potassium 3.8 mmol/L (3.4-5.1); Sodium 141 mmol/L (137-145); Total Protein 7.8 g/dL (6.3-8.2)
== END ==
PROVIDERS: PCP Student in an Organized Health Care Education/Training Program; Referring Provider Surgery; Visit Provider Surgery
DX: K80.20 Calculus of gallbladder without cholecystitis without obstruction (principal)
CPT/HCPCS: 36415; 80053; 83690; 85025

== ENCOUNTER → 2022-06-21 09:44 | Outpatient (CLI) | payer OTHER, SELFPAY ==
[2022-06-21 10:29] LABS: COVID19 -Nasal RAPID Negative (Negative)
== END ==
PROVIDERS: PCP Student in an Organized Health Care Education/Training Program; Visit Provider Surgery
DX: Z01.812 Encounter for preprocedural laboratory examination (principal); Z20.822 Contact with and (suspected) exposure to COVID-19
CPT/HCPCS: 87635

== ENCOUNTER 2022-06-21 09:45 | Day surgery (SDC) | payer OTHER, SELFPAY ==
[2022-06-17 09:56] VITALS: BMI 38.8
[2022-06-21] VITALS (12 sets, daily range): BP systolic 110–149; BP diastolic 73–98; PULSE 85–102; RESP 7–16; TEMP 36.2–36.4; O2SAT 89–98; BMI 37.6
--- NOTE | 2022-06-21 | PATH_ITS ---
[facility] Accession Number: [id number] . 01 Material submitted: . PART A: gallbladder - GALLBLADDER PART B: fallopian tube - BILATERAL FALLOPIAN TUBES AND RIGHHT OVARY PART C: endometrium - ENDOMETRIAL CURETTINGS . 01 Diagnosis: A. Gallbladder, Laparoscopic Cholecystectomy: Gallbladder with cholelithiasis. . B. Bilateral Fallopian Tubes and Right Ovary, Procedures Not Specified: Left fallopian tube, complete cross-sections; negative for epithelial atypia or malignancy. Right fallopian tube, complete cross-sections; negative for epithelial atypia or malignancy. Right ovary with a benign multiloculated serous cystadenoma (6.4 x 5.9 x 3.5 cm disrupted measurement). . C. Endometrial Curettings: Portions of disordered proliferative endometrium; negative for glandular hyperplasia, cytologic atypia, or malignancy. [facility] 06/23/2022 1544 Local . 01 Electronically signed: . Sara Dow MD, Pathologist NPI- [id number] . 01 Gross description: . A. Received in formalin, labeled with the patient's name and , designated gallbladder, and consists of an intact gallbladder measuring 8.3 x 3.2 x 2.5 cm with green, smooth serosa and a rough and unremarkable hepatic surface. The cystic duct is received closed with a clamp, is inked blue, and no pericystic lymph node is identified. Opening the specimen reveals the lumen to be filled with dark green viscous bile and a black roughened calculus measuring 1.3 cm in greatest dimension. The mucosa is dark green and velvety with no pinpoint yellow areas of discoloration, polyps, or lesions identified. The adorno average 0.3 cm thick. Railroad Mechanic sections to include the cystic duct margin and full-thickness sections are submitted in cassette A1. B. Received in formalin, labeled with the patient's name and , designated bilateral fallopian tubes and right ovary, and consists of two fimbriated fallopian tubes. The first is consistent with the left tube and measures 6.2 cm in length by 0.8 cm in diameter. The serosa is bravo and smooth with no cystic structures identified. Sectioning reveals an unremarkable stellate lumen. The presumed right fallopian tube measures 4.2 cm in length by 0.9 cm in diameter and is attached to a large previously disrupted cystic structure measuring 6.4 x 5.9 x 3.5 cm. The serosa of the fallopian tube is bravo and smooth. The external surface of the cyst is bravo and slightly wrinkled with no areas of puckering identified. The external surface of the cyst is inked blue. Opening reveals a multiloculated cystic structure with thin smooth adorno that average 0.2 cm thick with no areas of excrescences or thickening identified. The cysts contain straw colored serous fluid. No normal ovarian parenchyma is identified. Sectioning the fallopian tube reveals an unremarkable stellate lumen. Railroad Mechanic sections are submitted as follows: B1: Left fallopian tube to include entire bisected fimbriae and cross sections. B2: Right fallopian tube to include entire bisected fimbriae and cross section. B3-B5: Railroad Mechanic cyst. C. Received in formalin, labeled with the patient's name and , designated endometrial curettings, and consists of multiple red brown soft tissue fragments aggregating to 2.9 x 2.7 x 0.2 cm. The specimen is filtered into a biopsy bag and submitted entirely in cassette C1. ([id number]) /FRR 06/23/2022 0328 Local . 01 Pathologist provided ICD-10: K80.20, N93.9, N83.8, D27.9 . 01 CPT . 283204, 232863, 213020 Specimen Comment: A courtesy copy of this report has been sent to [phone] Performed at: 01 [facility] [address] [place] [address], [place], [place] [id number] MD Dung Paulson MD Phone: [phone]
[2022-06-21] MEDS: LACTATED RINGERS 1,000 ML 42 ML IV ×2 (10:29→14:18)
--- NOTE | 2022-06-21 10:54 | SUR.PREOP ---
Test: Patient declines test prior to surgery.
--- NOTE | 2022-06-21 11:54 | PM.HP.1 ---
History of Present Illness History of Present Illness Date Patient Seen: 06/21/22 Time Patient Seen: 11:54 Chief complaint: LAP JASKARAN W/IOC W/KAREN & PELVIC W/GARDE Narrative: Patient is a 46-year-old 3 para 2 who presents for laparoscopic removal of a pelvic cyst, removal of right ovary, and D&C hysteroscopy. These are being done due to a pelvic cystic mass, consistent right ovarian pain, and abnormal uterine bleeding. Endometrium not well visualized on the ultrasound. Patient History Medical History (Updated 06/17/22 @ 10:07 by Yu Acosta RN) Anxiety Paronychia of great toe of left foot Surgical History (Updated 06/17/22 @ 10:07 by Yu Acosta RN) History of gastric bypass Family & Social History Social History: household members spouse Tobacco & Substance use: Smoking Status Never smoker alcohol intake current alcohol intake frequency 0-2 drinks per day Substance Use Type does not use Meds Home Medications and Allergies Home Medications Medication Instructions Recorded Confirmed Type albuterol sulfate 90 mcg/actuation 2 puff inhalation Q6H PRN 11/04/21 06/21/22 Rx aerosol inhaler shortness of breath or wheezing #6.7 grams alprazolam 0.25 mg tablet (Xanax) 0.25 mg PO BID PRN anxiety #20 tabs 03/18/22 06/21/22 Rx citalopram 10 mg tablet (Celexa) 10 mg PO DAILY #30 tabs 03/18/22 06/21/22 Rx Allergies Allergy/AdvReac Type Severity Reaction Status Date / Time tetracycline Allergy Mild Vomiting Verified 06/21/22 10:30 Exam Vital Signs (past 8 hours): - 06/21/22 10:32 Temperature 97.1 F L Pulse Rate 97 H Respiratory Rate 16 Blood Pressure 149/98 H Pulse Oximetry 98 Oxygen Delivery Method Room Air Oxygen Delivery Method Room Air Narrative Exam Narrative: HEENT: No thyromegaly, no anterior cervical or supraclavicular lymphadenopathy. Lungs:Clear to auscultation bilaterally, no wheezes. Cardiovascular: Regular rate and rhythm, no murmurs, rubs, or gallops. Abdomen: Well-healed midline thoracic scar. No hepatosplenomegaly. No masses palpable. External genitalia: Normal Vagina: Normal Cervix: Normal Bimanual exam: 8 Week size anteverted uterus. Mobile. Right adnexal tenderness. There is a mass palpable in the posterior cul-de-sac. Extremities: Trace edema Assessment & Plan Assessment & Plan narrative: Assessment: 46-year-old 3 para 2 with persistent right ovarian pain, a pelvic cystic mass behind the uterus, and abnormal uterine bleeding Plan: Laparoscopic removal of right tube and ovary, removal of pelvic cystic mass, D&C hysteroscopy. The risks, benefits, and alternatives to the procedure were explained to the patient. The risks including bleeding, infection, injury to the bowel, bladder, ureters, or uterine perforation. She understands all of these risks and agrees to proceed. A full par Q was held and consent form was signed. COVID-19 COVID-19 status: Negative Result date/Date tested (Pos, Neg/Pending): 06/21/22 Time Spent With Patient Time with patient: less than 30 minutes Critical Care time: I spent a total of [] minutes of critical care time on this patient's care today; this time is exclusive of procedural time.
--- NOTE | 2022-06-21 11:54 | PM.PREOP ---
Pre-operative Note COVID-19 COVID-19 status: Negative Result date/Date tested (Pos, Neg/Pending): 06/21/22 Criteria for continued procedure: Non-surgical alternatives not available or appropriate per current SOC Interval Note History & Physical reviewed/Exam performed by Physician: Yes Changes to H&P: No
--- NOTE | 2022-06-21 12:03 | PM.HP.1 ---
History of Present Illness History of Present Illness Date Patient Seen: 06/21/22 Time Patient Seen: 12:03 Chief complaint: LAP JASKARAN W/IOC W/KAREN & PELVIC W/THOMAS Narrative: Adele is a 46-year-old woman with gallstones. See the office note from March for details. Patient History Medical History (Updated 06/17/22 @ 10:07 by Yu Acosta RN) Anxiety Paronychia of great toe of left foot Surgical History (Updated 06/17/22 @ 10:07 by Yu Acosta RN) History of gastric bypass Family & Social History Social History: household members spouse Tobacco & Substance use: Smoking Status Never smoker alcohol intake current alcohol intake frequency 0-2 drinks per day Substance Use Type does not use Meds Home Medications and Allergies Home Medications Medication Instructions Recorded Confirmed Type albuterol sulfate 90 mcg/actuation 2 puff inhalation Q6H PRN 11/04/21 06/21/22 Rx aerosol inhaler shortness of breath or wheezing #6.7 grams alprazolam 0.25 mg tablet (Xanax) 0.25 mg PO BID PRN anxiety #20 tabs 03/18/22 06/21/22 Rx citalopram 10 mg tablet (Celexa) 10 mg PO DAILY #30 tabs 03/18/22 06/21/22 Rx Allergies Allergy/AdvReac Type Severity Reaction Status Date / Time tetracycline Allergy Mild Vomiting Verified 06/21/22 10:30 Exam Vital Signs (past 8 hours): - 06/21/22 10:32 Temperature 97.1 F L Pulse Rate 97 H Respiratory Rate 16 Blood Pressure 149/98 H Pulse Oximetry 98 Oxygen Delivery Method Room Air Oxygen Delivery Method Room Air Const General: No acute distress Resp Effort & Inspection: normal respiratory effort Assessment & Plan Assessment and plan (1) Cholelithiasis: Qualifiers: Cholelithiasis location: gallbladder Cholecystitis presence: without cholecystitis Biliary obstruction: without biliary obstruction Qualified Code(s): K80.20 - Calculus of gallbladder without cholecystitis without obstruction Status: Acute Plan We will proceed with laparoscopic cholecystectomy with intraoperative cholangiogram. Dr. Duong will come in to perform the gynecological surgery. Time Spent With Patient Critical Care time: I spent a total of [] minutes of critical care time on this patient's care today; this time is exclusive of procedural time.
[2022-06-21] MEDS: CEFAZOLIN 2 GM/100 ML PREMIX 100 ML IV (13:24)
[2022-06-21] MEDS: CEFAZOLIN VIAL 1 GM in SODIUM CHLORIDE 0.9% 100 ML IV (13:24)
--- NOTE | 2022-06-21 13:30 | DI.RAD.S_ITS ---
PROCEDURE: XR CHOLANGIOGRAM OPERATIVE INDICATIONS: CHOLANGIOGRAM COMPARISON: None. FINDINGS: Biliary ducts: The surgeon injected contrast into the biliary ducts after cannulation of the cystic duct stump. Visualized intra- and extrahepatic bile ducts are normal in caliber, without strictures. No intraluminal filling defects to suggest retained ductal stones or sludge. No evidence for iatrogenic ductal injury. Duodenum: Contrast flows promptly through the sphincter of Oddi into the duodenum, which appears normal in caliber. IMPRESSION: Normal intraoperative cholangiogram. Dictated by: Rosalia Damico MD, PhD on 06/21/2022 at 15:51 Approved by: Rosalia Damico MD, PhD on 06/21/2022 at 15:52
[2022-06-21] MEDS: BUPIVACAINE 0.5% W/ EPI (PF) 30 ML VIAL INJ (13:58)
[2022-06-21] MEDS: IOPAMIDOL 50 ML VIAL INJ (14:14)
--- NOTE | 2022-06-21 14:42 | P.OP_ITS ---
Operative Date/Time/Diagnoses Date of procedure: 06/21/22 Time of procedure: 14:42 Pre-op diagnosis: Cholelithiasis Post-op diagnosis: same Procedure & Clinicians Procedure: Laparoscopic cholecystectomy with intraoperative cholangiogram Same procedure as scheduled: Yes Surgeon: Stan Montelongo Operative Notes Procedure in detail: The patient was given preoperative antibiotic. The patient was brought to the operating room, placed on the table in the supine position. General endotracheal anesthesia was induced. The abdomen was prepped and draped. A time-out was performed. We made a 1 cm infraumbilical incision. We dissected down to the base of the umbilical stalk using cautery. We grasped the umbilical stalk with a Carlton clamp to elevate the abdominal wall. We scored the fascia in the midline with cautery 1 cm. We pierced the peritoneum with a Peon clamp. Two 0 Vicryl stay sutures were placed to close the fascia at the end of the case. The Ana Paula port was placed and the abdomen was insufflated to 15 mmHg. A 5 mm 30 degree laparoscopic was inserted. There was no evidence of any injury from the entry. There were however adhesions of omentum to the upper midline incision. We then placed 5 mm ports in the right upper quadrant. An additional 5 mm port was placed in the mid right abdomen at the level of the umbilicus to assist with take down of adhesions. We then performed lysis of adhesions of the omental tissue to the upper midline incision to make room for the subxiphoid port. Once we cleared enough room we placed the subxiphoid port. The patient was then positioned in reverse Trendelenburg and the table was tilted to the left. There were further adhesions of omentum to the edge of the liver and gallbladder which were taken down with cautery under direct vision. The gallbladder was grasped at the dome and retracted cephalad. There were some adhesions of mesenteric tissue to the right liver which were carefully dissected with cautery to allow full retraction of the gallbladder. We then dissected the cystic structures with a combination of hook cautery and blunt dissection. We obtained a critical view. Next, a cholangiogram was performed using the 6 [place] ureteral catheter. There was good flow of contrast into the duodenum and liver with no obvious filling defects. The cystic duct common duct junction was well visualized. We then placed hemoclips on the cystic duct and artery and divided the cystic duct and artery sharply between the clips. The gallbladder was then dissected off the liver and placed in a specimen retrieval bag. We then removed all the 5 mm ports under direct vision except for the right port at the level of the umbilicus. Dr. Duong then came in to perform the right ovarian cystectomy and hysteroscopy.. EBL: 10 mL Specimen: Gallbladder Post-operative Condition: stable Disposition: PACU
--- NOTE | 2022-06-21 15:15 | PATH_ITS ---
Note [facility] Accession Number: [id number] TESTS RESULT FLAG UNITS REF RANGE LAB Clinician Provided Cytology Information No. of containers..01 Other (Miscellaneous) Source: RIGHT OVARY FLUID Clinician ICD10: K80.20 N93.9 N83.8 DIAGNOSIS: RIGHT OVARY FLUID NEGATIVE FOR MALIGNANT CELLS. THIS INTERPRETATION INCLUDES EVALUATION OF A CELL BLOCK. Pathologist ICD10: N83.8 Signed out by: Sara Dow MD, Pathologist NPI- [id number] Performed by: Sage Locke, Emergency Room Registered Nurse ([facility]) Gross description: 80 CC, COLORLESS, CLEAR RECEIVED FRESH IN ORANGE CAP CONTAINER /RZA 06/23/2022 0854 Local FLAG LEGEND: L-Low Normal,H-High Normal,LL-Alert Low,HH-Alert High <-Panic Low,>-Panic High,A-Abnormal,AA-Critical Abnormal Performed at: 01 =[facility] [address], [place] [address] Dung Paulson MD, Performed at: 01 [facility] [address], [place], [place] [id number] MD Dung Paulson MD Phone: [phone]
--- NOTE | 2022-06-21 15:49 | PM.GYNOP.1 ---
Operative Date/Time/Diagnoses Date of procedure: 06/21/22 Time of procedure: 15:49 Pre-op diagnosis: Pelvic cyst Abnormal uterine bleeding Right ovarian pain Post-op diagnosis: same Procedure & Clinicians Procedure: Procedures Operation Date: 06/21/22 11:15 Actual Procedure Side Surgeon p Laparoscopic Cholecystectomy with Intraoperative Cholangiograms and Lysis of Adhesions Not Applicable Stan Montelongo MD s Laparoscopic Right Salping-oophorectomy, Left Salpingectomy, and D&C hysteroscopy Rosie Duong MD Indications: Abnormal uterine bleeding Right ovarian pain 7 cm pelvic cyst on ultrasound Surgeon: Rosie Duong Anesthesia Type: General and Local Operative Notes Findings: 6 week size anteverted uterus Normal tubes Normal left ovary 8 cm right ovarian simple cyst Closure Type: primary Specimen(s): left tube and right tube & ovary Estimated blood loss (mL): 5 Blood products transfused: none Procedure in detail: Informed consent had been obtained in the office. Entry into the abdomen was dictated by Dr. Montelongo for laparoscopic removal of the gallbladder. A time-out was performed. Upon entering the operating room, there were [address] 1 in the umbilicus and the other to the right of the umbilicus approximately 4 cm lateral. A 5 mm incision was made after 6 cc of 0.5% Marcaine with epinephrine were injected 4 cm left lateral of the umbilicus. A 5 mm trocar was placed under direct visualization. The right tube and ovary were grasped with an atraumatic grasper. Using the LigaSure, the infundibulopelvic ligament on the right side was cauterized and cut. The mesosalpinx was cauterized and cut all the way down to the cornua of the uterus. The tube was amputated at the cornua. The utero-ovarian vessels were cauterized and cut. Hemostasis was achieved. Approximately 120 cc of clear fluid were aspirated out of the cyst and sent to cytology. The camera was moved to the right lateral incision. A small endobag was placed through the umbilical trocar, and the right tube and ovary were placed into the endobag. The left tube was grasped with an atraumatic grasper. The mesosalpinx was cauterized and cut all the way down to the cornua of the uterus. The tube was amputated at the cornua. The left tube was removed through the right lateral trocar. The instruments were removed from the abdomen. The CO2 was allowed to escape. All of the trocars were removed. The 2 bags 1 with a gallbladder and 1 with the right tube and ovary were removed through the umbilical incision. The umbilical incision was closed on the fascia with the stay sutures that had already been placed. Two simple interrupted sutures were placed into the subcutaneous layer to reapproximate. All 3 of the incisions were closed with 4-0 Monocryl in a subcuticular fashion. All of the incisions were covered with Steri-Strips and Allevyn dressings. The patient was then placed in the dorsal lithotomy position and re-prepped and draped. A bivalve speculum was placed into the vagina. A single-tooth tenaculum was placed on the anterior lip of the cervix. The cervical os was sequentially dilated until the hysteroscope could pass easily into the endometrial cavity. Initial inspection with the hysteroscope revealed both fallopian tube ostia. There were no polyps or fibroids. The hysteroscope was removed. Sharp curettage was performed yielding a moderate amount of endometrial curettings. The instruments were removed from the uterus. The single-tooth tenaculum was removed from the anterior lip of the cervix. The bivalve speculum was removed from the vagina. Sponge, lap, and instrument counts were correct x2. The patient tolerated the procedure well, and was taken to PACU in stable condition. Complications: none Post-operative Condition: stable Plan for aftercare: Home after recovery
[2022-06-21] MEDS: ONDANSETRON 4 MG/2 ML INJ IV ×2 (16:36→18:25)
--- NOTE | 2022-06-21 18:32 | SUR.PHASEII ---
Patient nauseated intermittently in Phase II now very nauseated and retching. Dr. Mahoney notified. Received order for IV Zofran. IV Zofran given as ordered. Patient now verbalizes relief of nausea. Denies pain. Vss. Discharging patient.
== END 2022-06-21 18:35 | disposition home or self-care (01) ==
PROVIDERS: Obstetrics & Gynecology; PCP Student in an Organized Health Care Education/Training Program; Referring Provider Surgery; Visit Provider Surgery
PROC: 0FT44ZZ Resection of Gallbladder, Percutaneous Endoscopic Approach (ICD-10-PCS; CPT 47562; principal; 2022-06-21 11:15)
PROC: (CPT 58661; 2022-06-21 11:15)
DX: N93.9 Abnormal uterine and vaginal bleeding, unspecified (principal); K80.20 Calculus of gallbladder without cholecystitis without obstruction; K66.0 Peritoneal adhesions (postprocedural) (postinfection); Z20.822 Contact with and (suspected) exposure to COVID-19; D27.0 Benign neoplasm of right ovary; Z01.812 Encounter for preprocedural laboratory examination
CPT/HCPCS: 58661; 47563; 58558; 74300; 87635; C9803; J0690; J1100; J1170; J2250; J2405; J2704; J3010

== ENCOUNTER → 2022-12-23 16:36 | Outpatient (CLI) | payer OTHER, SELFPAY ==
--- NOTE | 2022-12-23 16:38 | DI.US.S_ITS ---
PROCEDURE: US PELVIC COMPLETE INDICATIONS: IRREGULAR BLEEDING TECHNIQUE: Real-time scanning was performed of the pelvic organs, with image documentation. Additional endovaginal scanning was necessary due to incomplete visualization of the adnexal and endometrial structures by transabdominal scanning. COMPARISON: [facility], US, US PELVIC COMPLETE, 03/18/2022, 15:44. FINDINGS: Uterus: Uterus is anteverted and normal in size at 10.2 x 4.3 x 5.0 cm. The myometrium is homogeneous. The endometrium measures 8 mm combined thickness. Cluster of nabothian cysts measuring in total of approximately 2.4 x 2.3 x 1.7 cm. Ovaries: Status post right oophorectomy. The left ovary measures 5.5 x 4.0 x 3.6 cm, with a calculated ovarian volume of 41 cc. There are 2 dominant follicles in the left ovary with 1 measuring 2.8 cm in the 2nd measuring approximately 2.9 cm in size. Less than 12 follicles can be seen in each ovary. No adnexal masses are seen. Other: No pathologic free abdominal or pelvic fluid. IMPRESSION: Pelvic ultrasound without acute sonographic abnormalities. Status post right oophorectomy. We strive to produce accurate, complete, and clear reports of imaging services. To assist us in improving patient care, this report was composed using standard report templates and voice recognition software. Therefore, it may contain abnormal punctuation, insertions and/or omissions. Occasional wrong-word or sound-alike substitutions may occur. Though we review the report and make efforts to correct it, we do recommend that the report be read carefully in proper context to recognize any text inaccuracies. Dictated by: Ciro Veloz M.D. on 12/23/2022 at 22:06 Approved by: Ciro Veloz M.D. on 12/23/2022 at 22:11
== END ==
PROVIDERS: PCP Student in an Organized Health Care Education/Training Program; Referring Provider Obstetrics & Gynecology; Visit Provider Obstetrics & Gynecology
DX: N92.6 Irregular menstruation, unspecified (principal); N95.1 Menopausal and female climacteric states; Z90.721 Acquired absence of ovaries, unilateral
CPT/HCPCS: 76830; 76856

== ENCOUNTER 2023-01-23 08:22 | Day surgery (SDC) | payer OTHER, SELFPAY ==
[2023-01-17 15:35] VITALS: BMI 40.1
[2023-01-23] VITALS (10 sets, daily range): BP systolic 107–149; BP diastolic 68–97; PULSE 64–107; RESP 10–16; TEMP 36.1–36.2; O2SAT 95–99; BMI 40.1
--- NOTE | 2023-01-23 | PATH_ITS ---
[facility] Accession Number: [id number] No. of containers..01 Tissue . 01 Material submitted: . uterus - UTERUS AND LEFT OVARY . 01 Diagnosis: Uterus and Left Ovary, Supracervical Hysterectomy and Left Oophorectomy: Endometrium: Disordered proliferative. Myometrium: Adenomyosis and small leiomyoma without significant atypia. Ovary: Benign cyst with attenuated lining, favor corpus luteal; postmenopausal changes with corpora albicantia, surface epithelial glandular inclusions, and dystrophic calcification. [facility] 01/31/2023 1749 Local . 01 Electronically signed: . Nicole Billingsley MD, Pathologist NPI- [id number] . 01 Gross description: . The specimen is received in formalin labeled with the patient's name, , and uterus and left ovary consist of multiple morcellated fragments of pink-bravo uterine tissue aggregating to 10.8 x 10.7 x 4.4 cm and weighing 112 grams. The serosal surfaces are pink-bravo, smooth and unremarkable. A cervix is not identified. The tissue is serially sectioned to reveal a pink-bravo trabecular myometrium measuring up to 3.0 cm in thickness. Scanty possible endometrium is noted measuring 0.1 cm in thickness. No polyps or lesions are seen. Two white, possible leiomyomatous nodules are seen, each measuring 0.3 cm in greatest dimension. The cut surfaces are white, whorled and free from hemorrhage and necrosis. Also received in the container is a white-pink rubbery ovary measuring 4.4 x 3.2 x 1.3 cm and weighing 9 grams. The ovary is sectioned to reveals pink-bravo homogeneous parenchyma with a previously disrupted cystic structure measuring 3.0 x 1.7 x 0.7 cm. No papillary excrescences are seen. No lesions are identified. Clinical Appeals Specialist sections are submitted as follows: A1-A2: Possible endometrium with underlying myometrium. A3: Leiomyomatous nodules. A4: Ovarian parenchyma. A5: Ovarian cyst lining. ([id number]) /MRV 01/27/2023 1833 Local . 01 Pathologist provided ICD-10: N92.0 . 01 CPT . 161780 Specimen Comment: A courtesy copy of this report has been sent to [phone] Performed at: 01 [facility] Cytology [address] [place] [address] [address] [facility], [place], [place] [id number] MD Dung Paulson MD Phone: [phone]
[2023-01-23] MEDS: LACTATED RINGERS 1,000 ML 100 ML IV ×2 (08:54→11:17)
[2023-01-23] MEDS: SCOPOLAMINE 1 PATCH TOP (09:11)
[2023-01-23] MEDS: CEFAZOLIN VIAL 3 GM in SODIUM CHLORIDE 0.9% 100 ML IV (10:00)
--- NOTE | 2023-01-23 10:04 | PM.PREOP ---
Pre-operative Note COVID-19 Criteria for continued procedure: Non-surgical alternatives not available or appropriate per current SOC Interval Note History & Physical reviewed/Exam performed by Physician: Yes Changes to H&P: No H&P completed within 30 days and has changed as indicated here:: 01/10/23
--- NOTE | 2023-01-23 10:19 | SUR.OPER ---
Lithotomy on padded OR bed. Tullos Pad Positioner under torso. Head on pillow, arms padded and tucked at sides. Legs secured in padded yellow fins stirrups.
[2023-01-23] MEDS: ACETAMINOPHEN IV 1,000 MG/100 ML VIAL 400 MG IV (10:30)
[2023-01-23] MEDS: ROPIVACAINE 0.2% PF 2 MG/ML 20ML AMP 20 ML INJ (10:43)
[2023-01-23] MEDS: BUPIVACAINE 0.5% (PF) 30 ML VIAL INJ (10:44)
--- NOTE | 2023-01-23 11:42 | PM.GYNOP.1 ---
Operative Date/Time/Diagnoses Date of procedure: 01/23/23 Time of procedure: 11:42 Pre-op diagnosis: Complex endometrial hyperplasia, no atypia Menometrorrhagia Post-op diagnosis: same Procedure & Clinicians Procedure: Procedures Operation Date: 01/23/23 09:45 Actual Procedure Side Surgeon p Laparoscopic Supracervical Hysterectomy and left oophorectomy Rosie Duong MD Indications: Complex endometrial hyperplasia Menometrorrhagia Surgeon: Rosie Duong Web Marketing Manager: Afsaneh Wells Anesthesia Type: General and Local Operative Notes Findings: 10 week size anteverted uterus 5 cm left ovarian cyst Previously removed right tube and ovary Previously removed left tube Normal appendix Normal liver Closure Type: primary Specimen(s): uterus and other (Left ovary) Applied: catheter (Removed at the end of the case) Estimated blood loss (mL): 25 Blood products transfused: none Procedure in detail: The patient was taken to the operating room where she was placed in the dorsal supine position. After adequate general endotracheal anesthesia was achieved, she was placed in the dorsal lithotomy position, and prepped and draped in the usual sterile fashion. A timeout was performed. A bivalve speculum was placed into the vagina and the anterior lip of the cervix grasped with a single-tooth tenaculum. The cervical os was sequentially dilated until the ZUMI uterine manipulator could pass easily into the endometrial cavity. The single-tooth tenaculum was removed from the anterior lip of the cervix, and the bivalve speculum was removed from the vagina. Attention was then turned to the abdomen where 6 mL of half percent Marcaine were injected in the umbilical fold. A 5 mm incision was made. The Veress needle was placed into the peritoneal cavity, and its placement confirmed by aspiration and drop test. The veress needle was removed. A 5 mm trocar was placed without difficulty. 2 other incisions were made 4 cm lateral to the midline after 6 cc of 0.5% Marcaine was injected. These were 5 mm incisions. Two, 5 mm trocars were placed under direct visualization. The right cornua of the uterus was grasped with an atraumatic grasper. Using the power seal, the broad ligament and round ligament were cauterized and cut the bladder flap was created using cautery and cut. The uterine arteries were extensively cauterized with the power seal. Hemostasis was achieved. On the left side the left ovary was grasped with an atraumatic grasper. Using the power seal, the infundibulopelvic ligament was cauterized and cut. The broad ligament and round ligament were cauterized and cut. The remainder of the bladder flap was created using the power seal with cautery and cut. The bladder was taken down off the lower uterine segment and cervix. Using the L[place]oop, the cervix was amputated from the uterus 2 cm above the uterosacral ligaments, after the ZUMI uterine manipulator was removed from the uterus and a moistened sponge stick was placed in the vagina. There was a small amount of bleeding noted from the posterior edge of the cervix, and this was cauterized for hemostasis. 6 mL of half percent Marcaine were injected above the pubic symphysis. A 12mm incision was made. A 12 mm trocar was placed under direct visualization. The large endobag was placed into the pelvis. The uterus and left ovary were placed into the endobag. The trocar was removed. The edges of the bag were brought up through the skin. The uterus was grasped with a Carlton. The Josh was placed into the peritoneal cavity. The uterus was morcellated in approximately [8] pieces. The ovary was removed from the endobag. The Endobag was removed from the peritoneal cavity with the Josh. The suprapubic fascia was closed with 0 Vicryl in a running fashion. The abdomen was re-insufflated with carbon dioxide gas. The pelvis was copiously irrigated with warm normal saline. No bleeding was noted. 20 mL of 0.2% ropivacaine were placed over the pelvic pedicles. The instruments were removed from the abdomen. The CO2 was allowed to escape. All of the incisions were closed with 4-0 Biosyn in a subcuticular fashion. Steri strips, 2x2's and op sites were placed over the incisions. The moistened sponge stick was removed from the vagina. Sponge, lap, and instrument counts were correct x 2. The patient tolerated the procedure well, was taken to PACU in stable condition. Complications: none Post-operative Condition: stable Disposition: PACU Plan for aftercare: Home after recovery
[2023-01-23] MEDS: OXYCODONE IR 5 MG TABLET PO (13:50)
== END 2023-01-23 14:00 | disposition home or self-care (01) ==
LOC: OR 08:22 → AC 08:22
PROVIDERS: PCP Pediatrics; Referring Provider Obstetrics & Gynecology; Visit Provider Obstetrics & Gynecology
PROC: 0UT94ZL Resection of Uterus, Supracervical, Percutaneous Endoscopic Approach (ICD-10-PCS; CPT 58542; principal; 2023-01-23 09:45)
DX: N92.1 Excessive and frequent menstruation with irregular cycle (principal); N83.202 Unspecified ovarian cyst, left side; N80.03 Adenomyosis of the uterus; D25.9 Leiomyoma of uterus, unspecified
CPT/HCPCS: 58542; J0131; J0330; J0690; J1100; J1170; J1885; J2405; J2704; J2795; J3010; J3490

== ENCOUNTER → 2023-03-14 15:40 | Outpatient (CLI) | payer OTHER, SELFPAY ==
--- NOTE | 2023-03-14 | DI.MG.S_ITS ---
BILATERAL DIGITAL SCREENING MAMMOGRAM 3D/2D WITH CAD: 03/14/2023 CLINICAL: Routine screening. Family history of breast cancer. Comparison is made to exams dated: 03/05/2022 mammogram, 03/01/2021 mammogram, and 01/24/2020 mammogram - [facility]. There are scattered areas of fibroglandular density in both breasts (category b / 25%-50% glandular tissue). Current study was also evaluated with a Computer Aided Detection (CAD) system. No significant masses, calcifications, or other findings are seen in either breast. There has been no significant interval change. IMPRESSION: NEGATIVE There is no mammographic evidence of malignancy. A 1 year screening mammogram is recommended. Based on the Tyrer Cuzick model (a risk assessment model) the patient's lifetime risk is 13.4% and her 10 year risk is 3.0%. According to the ACR, ACS, and NCCN guidelines, an annual breast MRI exam along with mammogram is recommended if the patient's lifetime risk is 20% or greater. This exam was interpreted at Station ID: [id number]. NOTE: For mammograms, a report in lay terms will be sent to the patient. Approximately 15% of breast malignancies will not be visualized mammographically. In the management of a palpable breast mass, a negative mammogram must not discourage biopsy of a clinically suspicious lesion. Electronically Signed By: Jarrett [email or web address]/jadyn:03/15/2023 10:25:46 letter sent: Normal Exam ACR BI-RADS Category 1: Negative [id number]
== END ==
PROVIDERS: PCP Pediatrics; Referring Provider Pediatrics; Visit Provider Pediatrics
DX: Z12.31 Encounter for screening mammogram for malignant neoplasm of breast (principal); Z80.3 Family history of malignant neoplasm of breast
CPT/HCPCS: 77063; 77067

== ENCOUNTER → 2023-08-15 14:41 | Outpatient (CLI) | payer OTHER, SELFPAY | LOC: RESP 14:42 | PROVIDERS: PCP Family Medicine; Referring Provider Family Medicine; Visit Provider Family Medicine | DX: J45.909 Unspecified asthma, uncomplicated (principal); F17.210 Nicotine dependence, cigarettes, uncomplicated | CPT/HCPCS: 94060; 94726; 94729 ==

== ENCOUNTER → 2023-11-22 07:24 | Outpatient (CLI) | payer OTHER, SELFPAY ==
[2023-11-22 08:22] LABS: Add Manual Diff / Slide Review NO; Basophils Absolute Auto 0 /uL (0-100); Eosinophils Absolute Auto 100 /uL (0-450); Eosinophils Percent Auto 2.3 % (2-4); Hematocrit 31.2 % (36-46); Hemoglobin 10.1 g/dL (12.0-16.0); Lymphocytes Absolute Auto 1400 /uL (1100-4500); Lymphocytes Percent Auto 32.3 % (25-40); Mean Corpuscular HGB Conc 32.2 % (30-36); Mean Corpuscular Hemoglobin 25.9 PG (26-34); Mean Corpuscular Volume 80.5 fL (80-100); Monocytes Absolute Auto 400 /uL (0-900); Monocytes Percent Auto 8.4 % (3-14); Neutrophils Absolute Auto 2400 /uL (1500-7000); Platelet Count 286 X10^3/uL (150-400); Red Blood Cell Count 3.88 X10^6/uL (4.0-5.2); Red Cell Distribution Width 18.2 % (11.6-14.8); White Blood Cell Count 4.3 X10^3/uL (4.5-11.0)
[2023-11-22 08:28] LABS: Hemoglobin A1C% w Est Avg Glu 5.1 % (4.0-6.0)
[2023-11-22 08:52] LABS: Iron 41 ug/dL (37-170)
[2023-11-22 08:54] LABS: Alanine Aminotransferase 18 IU/L (<35); Albumin 3.9 g/dL (3.5-5.0); Albumin Globulin Ratio 1.5 (1.0-2.8); Alkaline Phosphatase 86 U/L (38-126); Aspartate Aminotransferase 23 IU/L (14-36); BUN Creatinine Ratio 10.8 (6-22); Bilirubin Total 0.4 mg/dL (0.2-1.3); Blood Urea Nitrogen 8 mg/dL (7-17); Calcium 8.6 mg/dL (8.4-10.2); Carbon Dioxide 25 mmol/L (22-32); Chloride 110 mmol/L (98-107); Cholesterol 219 mg/dL (140-199); Estimated Glomerular Filt Rate > 60 mL/min (>60); Globulin 2.6 g/dL (1.7-4.1); Glucose 89 mg/dL (70-100); HDL Cholesterol 67 mg/dL (40-60); HEMOLYSIS < 15 (0-50); LDL Cholesterol Calculated 86 mg/dL (<100); Potassium 4.5 mmol/L (3.4-5.1); Sodium 138 mmol/L (137-145); Total Protein 6.5 g/dL (6.3-8.2); Triglycerides 331 mg/dL (35-150)
[2023-11-22 09:13] LABS: TSH w/ Reflex to FT4 2.32 uIU/mL (0.47-4.68)
[2023-11-22 09:49] LABS: Folate 6.1 ng/mL (2.76-20.0); Vitamin B12 < 159 pg/mL (239-931)
== END ==
PROVIDERS: PCP Family Medicine; Referring Provider Family Medicine; Visit Provider Family Medicine
DX: Z78.0 Asymptomatic menopausal state (principal); N92.0 Excessive and frequent menstruation with regular cycle; E55.9 Vitamin D deficiency, unspecified; E66.9 Obesity, unspecified; Z13.6 Encounter for screening for cardiovascular disorders; N92.1 Excessive and frequent menstruation with irregular cycle; J45.909 Unspecified asthma, uncomplicated; N85.01 Benign endometrial hyperplasia
CPT/HCPCS: 36415; 80053; 80061; 82306; 82607; 82746; 83036; 83540; 84443; 85025

== ENCOUNTER → 2024-02-23 13:57 | Outpatient (CLI) | payer OTHER, SELFPAY ==
[2024-02-23 14:33] LABS: Add Manual Diff / Slide Review NO; Basophils Absolute Auto 100 /uL (0-100); Basophils Percent Auto 0.8 % (0-2); Eosinophils Absolute Auto 100 /uL (0-450); Eosinophils Percent Auto 1.7 % (2-4); Hematocrit 35.5 % (36-46); Hemoglobin 11.4 g/dL (12.0-16.0); Lymphocytes Absolute Auto 2200 /uL (1100-4500); Lymphocytes Percent Auto 28.7 % (25-40); Mean Corpuscular HGB Conc 32.2 % (30-36); Mean Corpuscular Hemoglobin 25.4 PG (26-34); Monocytes Absolute Auto 500 /uL (0-900); Monocytes Percent Auto 6.9 % (3-14); Neutrophils Absolute Auto 4800 /uL (1500-7000); Neutrophils Percent Auto 61.9 % (50-75); Platelet Count 321 X10^3/uL (150-400); Red Cell Distribution Width 17.4 % (11.6-14.8); White Blood Cell Count 7.7 X10^3/uL (4.5-11.0)
[2024-02-23 15:45] LABS: HEMOLYSIS < 15 (0-50)
[2024-02-23 15:56] LABS: Total Iron Binding Capacity 436 ug/dL (265-497); Transferrin 355 mg/dL (206-381)
[2024-02-23 16:03] LABS: Vitamin D 25 Hydroxy (D3) 41.9 ng/mL (30.0-100.0)
[2024-02-23 16:24] LABS: Ferritin 6 ng/mL (11-264)
[2024-02-23 16:35] LABS: Vitamin B12 < 159 pg/mL (239-931)
[2024-02-23 18:04] LABS: Iron 38 ug/dL (37-170); Percent Iron Saturation 9 % (15-50)
== END ==
PROVIDERS: PCP Family Medicine; Referring Provider Family Medicine; Visit Provider Family Medicine
DX: F10.10 Alcohol abuse, uncomplicated (principal); F41.1 Generalized anxiety disorder; E55.9 Vitamin D deficiency, unspecified; E66.9 Obesity, unspecified; N93.9 Abnormal uterine and vaginal bleeding, unspecified
CPT/HCPCS: 36415; 82306; 82607; 82728; 83540; 83550; 85025

== ENCOUNTER → 2024-03-20 10:37 | Outpatient (CLI) | payer OTHER, SELFPAY ==
--- NOTE | 2024-03-20 10:38 | DI.MG.S_ITS ---
BILATERAL DIGITAL SCREENING MAMMOGRAM 3D/2D WITH CAD: 03/20/2024 CLINICAL: Routine screening. Family history of breast cancer. Comparison is made to exams dated: 03/14/2023 mammogram, 03/05/2022 mammogram, and 03/01/2021 mammogram - [facility]. There are scattered areas of fibroglandular density (category b / 25%-50% glandular tissue). Current study was also evaluated with a Computer Aided Detection (CAD) system. No significant masses, calcifications, or other findings are seen in either breast. There has been no significant interval change. IMPRESSION: NEGATIVE There is no mammographic evidence of malignancy. A 1 year screening mammogram is recommended. Based on the Tyrer Cuzick model (a risk assessment model) the patient's lifetime risk is 13.7% and her 10 year risk is 3.2%. According to the ACR, ACS, and NCCN guidelines, an annual breast MRI exam along with mammogram is recommended if the patient's lifetime risk is 20% or greater. This exam was interpreted at Station ID: [id number]. NOTE: For mammograms, a report in lay terms will be sent to the patient. Approximately 15% of breast malignancies will not be visualized mammographically. In the management of a palpable breast mass, a negative mammogram must not discourage biopsy of a clinically suspicious lesion. Electronically Signed By: Marjorie lane/jadyn:03/20/2024 17:51:00 letter sent: Normal Exam ACR BI-RADS Category 1: Negative
== END ==
PROVIDERS: PCP Family Medicine; Referring Provider Family Medicine; Visit Provider Family Medicine
DX: Z12.31 Encounter for screening mammogram for malignant neoplasm of breast (principal); Z80.3 Family history of malignant neoplasm of breast
CPT/HCPCS: 77063; 77067

== ENCOUNTER → 2024-04-25 11:53 | Outpatient (CLI) | payer OTHER, SELFPAY ==
[2024-04-25 13:15] LABS: Add Manual Diff / Slide Review NO; Basophils Absolute Auto 0 /uL (0-100); Basophils Percent Auto 0.6 % (0-2); Eosinophils Absolute Auto 100 /uL (0-450); Eosinophils Percent Auto 1.3 % (2-4); Hematocrit 39.7 % (36-46); Hemoglobin 13.3 g/dL (12.0-16.0); Lymphocytes Absolute Auto 1500 /uL (1100-4500); Lymphocytes Percent Auto 24.3 % (25-40); Mean Corpuscular HGB Conc 33.6 % (30-36); Mean Corpuscular Hemoglobin 29.5 PG (26-34); Mean Corpuscular Volume 87.9 fL (80-100); Monocytes Absolute Auto 500 /uL (0-900); Monocytes Percent Auto 8.3 % (3-14); Neutrophils Absolute Auto 4200 /uL (1500-7000); Neutrophils Percent Auto 65.5 % (50-75); Platelet Count 246 X10^3/uL (150-400); Red Blood Cell Count 4.52 X10^6/uL (4.0-5.2); White Blood Cell Count 6.4 X10^3/uL (4.5-11.0)
[2024-04-25 13:31] LABS: HEMOLYSIS < 15 (0-50); Iron 120 ug/dL (37-170)
[2024-04-25 13:39] LABS: Alanine Aminotransferase 22 IU/L (<35); Albumin 4.1 g/dL (3.5-5.0); Albumin Globulin Ratio 1.5 (1.0-2.8); Alkaline Phosphatase 104 U/L (38-126); Aspartate Aminotransferase 26 IU/L (14-36); BUN Creatinine Ratio 12.9 (6-22); Bilirubin Total 0.6 mg/dL (0.2-1.3); Blood Urea Nitrogen 12 mg/dL (7-17); Calcium 9.6 mg/dL (8.4-10.2); Carbon Dioxide 23 mmol/L (22-32); Chloride 107 mmol/L (98-107); Estimated Glomerular Filt Rate > 60 mL/min (>60); Globulin 2.8 g/dL (1.7-4.1); Glucose 101 mg/dL (70-100); HEMOLYSIS < 15 (0-50); Potassium 4.4 mmol/L (3.4-5.1); Sodium 137 mmol/L (137-145); Total Protein 6.9 g/dL (6.3-8.2)
[2024-04-25 13:43] LABS: Percent Iron Saturation 34 % (15-50); Total Iron Binding Capacity 349 ug/dL (265-497); Transferrin 293 mg/dL (206-381)
[2024-04-25 14:08] LABS: Ferritin 36 ng/mL (11-264)
[2024-04-25 14:28] LABS: Vitamin B12 302 pg/mL (239-931)
[2024-04-25 14:52] LABS: Anisocytosis 1+
[2024-04-25 15:00] LABS: Vitamin D 25 Hydroxy (D3) 33.1 ng/mL (30.0-100.0)
== END ==
PROVIDERS: PCP Family Medicine; Referring Provider Family Medicine; Visit Provider Family Medicine
DX: E66.9 Obesity, unspecified (principal); N95.9 Unspecified menopausal and perimenopausal disorder; D72.819 Decreased white blood cell count, unspecified; D64.9 Anemia, unspecified; E53.8 Deficiency of other specified B group vitamins
CPT/HCPCS: 36415; 80053; 82306; 82607; 82728; 83540; 83550; 85025

== ENCOUNTER → 2024-05-15 09:18 | Outpatient (CLI) | payer OTHER, SELFPAY ==
--- NOTE | 2024-05-15 09:19 | DI.MRI.S_ITS ---
PROCEDURE: MR LUMBAR SPINE WO CON INDICATIONS: LOWER BACK/LUMBAR SPINE PAIN/L HIP PAIN/LLE TINGLE TECHNIQUE: Noncontrast sagittal T1 spin echo and T2 fast echo, sagittal STIR, and T2 fast spin echo through the lumbar spine. In cases with scoliosis, additional coronal T2 fast spin echo may be performed. COMPARISON: None. FINDINGS: Image quality: Excellent. Alignment and Curvature: There is normal bony alignment. Bone Marrow: Marrow is of normal overall signal. No acute vertebral body compression fractures. Spinal Cord: Conus medullaris terminates at the L1 level. Visualized cord demonstrates normal signal and size. Paraspinous Soft Tissues: No paravertebral masses. T12-L1: Normal appearance. The AP diameter spinal canal measures 1.67 cm. Normal L1-L2: Normal appearance. The AP diameter spinal canal measures 1.69 cm. Normal L2-L3: Normal appearance. Normal AP diameter 1.54 cm. L3-L4: There is mild disc desiccation. The AP diameter of the spinal canal measures 14.4 mm. There is mild facet arthropathy. L4-L5: There is mild disc desiccation. The AP diameter is normal measuring 1.49 cm. There is a left facet synovial cyst measuring 5.9 mm. Cyst does not protrude into the canal or impinge any nerve roots. There is moderate facet arthropathy. L5-S1: Normal appearance. The AP diameter spinal canal measures 1.87 cm which is normal. There is moderate facet arthropathy. IMPRESSION: Multilevel degenerative facet arthropathy especially involving the L4-5 and L5-S1 level with a small left synovial cyst. No evidence of central spinal stenosis. No focal disc protrusions. REFERENCE DELETE FROM FINAL REPORT Less common manifestations of disc degeneration: * dorsal epidural disc herniation. * intradural disc herniation (may have beaklike morphology). * symptomatic thoracic herniation: often, calcified, intradural. * far lateral disc herniation. * discal cyst: may have blood-fluid level. * fibrocartilaginous embolism of disc material to spinal cord. * calcified disc or bony spicule causing spinal CSF leak. Lumbar disc nomenclature v2.0: Recommendations of the combined task forces of the [place] [employer], [place] [employer], and [place] [employer] Annular fissures: seen as high intensity zones on MRI. Concentric, radial, transverse. Degeneration encompasses: desiccation, fibrosis, disc narrowing, diffuse bulge, fissuring, mucinous degeneration of annulus, intradiscal gas, vertebral apophyseal osteophytes, end plate defects, inflammatory changes and sclerosis (Modic types I-III). Disc herniation: localized or focal displacement of disc material less than 25% (90 degrees) of disc periphery on axial images. Diffuse bulging and asymmetric bulging (>25%) are not considered herniation. * Protrusion, extrusion, sequestration. * Disc fragment can migrate (refers only to position, not contiguity). * Intravertebral herniations (aka Schmorl nodes). * Herniations may be contained (if covered by intact outer annulus and/or PLL) vs uncontained. Subligamentous is considered synonymous with contained. A sequestered and/or migrated disc fragment can still be contained. Canal and foraminal stenosis: use 2-D measurements at site of most marked compromise. * Mild: canal compromise of less than 1/3. * Moderate: canal compromise of 1/3 to 2/3. * Severe: canal compromise of greater than 2/3. Location descriptors: * Central, right/left central, right/left subarticular, right/left foraminal, right/left extraforaminal or far lateral. Right/left central should supersede paracentral (a more general term). * In sagittal plane: discal, infrapedicular, suprapedicular, or pedicular. Dictated by: Lisa Vaughan M.D. on 05/15/2024 at 10:32 Approved by: Lisa Vaughan M.D. on 05/15/2024 at 10:45
== END ==
PROVIDERS: PCP Family Medicine; Referring Provider Chiropractor; Visit Provider Chiropractor
DX: M47.26 Other spondylosis with radiculopathy, lumbar region (principal); M47.27 Other spondylosis with radiculopathy, lumbosacral region; M71.38 Other bursal cyst, other site; M99.13 Subluxation complex (vertebral) of lumbar region; M99.06 Segmental and somatic dysfunction of lower extremity; M54.51 Vertebrogenic low back pain; M25.552 Pain in left hip
CPT/HCPCS: 72148

== ENCOUNTER → 2024-08-02 12:12 | Outpatient (CLI) | payer OTHER, SELFPAY ==
[2024-08-02 13:07] LABS: HEMOLYSIS < 15 (0-50); Iron 92 ug/dL (37-170)
[2024-08-02 13:18] LABS: Percent Iron Saturation 31 % (15-50); Total Iron Binding Capacity 293 ug/dL (265-497); Transferrin 288 mg/dL (206-381)
[2024-08-02 13:43] LABS: Ferritin 15 ng/mL (11-264)
[2024-08-02 13:59] LABS: Vitamin B12 294 pg/mL (239-931)
[2024-08-02 20:04] LABS: Vitamin D 25 Hydroxy (D3) 23.4 ng/mL (30.0-100.0)
== END ==
PROVIDERS: PCP Family Medicine; Referring Provider Family Medicine; Visit Provider Family Medicine
DX: E53.8 Deficiency of other specified B group vitamins (principal); E61.1 Iron deficiency; D64.9 Anemia, unspecified
CPT/HCPCS: 36415; 82306; 82607; 82728; 83540; 83550

== ENCOUNTER → 2024-08-29 14:48 | Outpatient (CLI) | payer OTHER, SELFPAY ==
[2024-08-29 16:29] LABS: Add Manual Diff / Slide Review NO; Basophils Absolute Auto 100 /uL (0-100); Basophils Percent Auto 0.7 % (0-2); Eosinophils Absolute Auto 100 /uL (0-450); Eosinophils Percent Auto 1.3 % (2-4); Hematocrit 42.4 % (36-46); Hemoglobin 14.2 g/dL (12.0-16.0); Lymphocytes Absolute Auto 2000 /uL (1100-4500); Lymphocytes Percent Auto 26.2 % (25-40); Mean Corpuscular HGB Conc 33.5 % (30-36); Mean Corpuscular Hemoglobin 32.9 PG (26-34); Mean Corpuscular Volume 98.2 fL (80-100); Monocytes Absolute Auto 500 /uL (0-900); Monocytes Percent Auto 7.2 % (3-14); Neutrophils Absolute Auto 4800 /uL (1500-7000); Neutrophils Percent Auto 64.6 % (50-75); Platelet Count 253 X10^3/uL (150-400); Red Blood Cell Count 4.32 X10^6/uL (4.0-5.2); Red Cell Distribution Width 14.3 % (11.6-14.8); White Blood Cell Count 7.5 X10^3/uL (4.5-11.0)
== END ==
LOC: LAB 14:49
PROVIDERS: PCP Family Medicine; Referring Provider Family Medicine; Visit Provider Family Medicine
DX: E61.1 Iron deficiency (principal); D64.9 Anemia, unspecified
CPT/HCPCS: 36415; 85025

== ENCOUNTER 2024-10-25 11:28 | Day surgery (SDC) | payer OTHER, SELFPAY ==
[2024-10-25 11:44] VITALS: BP 142/95; PULSE 92; RESP 17; TEMP 36.6; O2SAT 99
[2024-10-25] MEDS: LACTATED RINGERS 1,000 ML 42 ML IV (11:53)
--- NOTE | 2024-10-25 12:12 | PM.PREOP ---
Pre-operative Note COVID-19 Result date/Date tested (Pos, Neg/Pending): 10/25/24 Interval Note History & Physical reviewed/Exam performed by Physician: Yes Changes to H&P: No H&P completed within 30 days and has changed as indicated here:: H&P less than 48 hours old. ASA Class (for procedural sedation): II
--- NOTE | 2024-10-25 13:03 | P.OP_ITS ---
Operative Date/Time/Diagnoses Date of procedure: 10/25/24 Time of procedure: 12:40 Pre-op diagnosis: Screening colonoscopy Post-op diagnosis: same Procedure & Clinicians Procedure: Colonoscopy Same procedure as scheduled: Yes Indications: Patient needs screening colonoscopy Surgeon: Luís Maza Click Yes if Unassisted: Yes Anesthesia Type: MAC +/- Operative Notes Findings: Normal colon Closure Type: not applicable Estimated Blood Loss (mL): 0 Procedure in detail: After obtaining informed consent properly identifying the patient the patient was transported to the endo suite and was placed on the table left lateral decubitus position. IV sedation was administered and when an adequate level of sedation had been achieved, the procedure was begun. A flexible fiberoptic Fuji colonoscope with 2 m length was passed transanally into the anus and clear around the cecum under direct endoscopic vision. Prep was adequate. Exam was performed retrograde. Cecum and ascending colon were without evidence of polyp, arteriovenous malformation, flat adenoma, ulceration or diverticulum. Hepatic flexure transverse colon and splenic flexure were similarly normal in appearance without evidence of mucosal abnormality. Descending colon was without evidence of polyp, AVM, adenoma, ulceration or di verticulum. The sigmoid colon was without mucosal abnormality and the rectum was normal as the scope was withdrawn. Patient tolerated the procedure well and was transported to the recovery room awake and alert. Complications: none Post-operative Plan for aftercare: Discharged to home follow up as needed
[2024-10-25 13:05] VITALS: BP 114/75; PULSE 82; RESP 14; TEMP 36.7; O2SAT 97
[2024-10-25 13:10] VITALS: BP 127/81; PULSE 74; RESP 15; O2SAT 100
[2024-10-25 13:23] VITALS: BP 132/81; PULSE 73; RESP 15; TEMP 36.6; O2SAT 97
== END 2024-10-25 13:31 | disposition home or self-care (01) ==
PROVIDERS: PCP Family Medicine; Referring Provider Surgery; Visit Provider Surgery
PROC: 0DJD8ZZ Inspection of Lower Intestinal Tract, Via Natural or Artificial Opening Endoscopic (ICD-10-PCS; CPT 45378; principal; 2024-10-25 12:30)
DX: Z12.11 Encounter for screening for malignant neoplasm of colon (principal); Z87.891 Personal history of nicotine dependence
CPT/HCPCS: 45378; J2704

== ENCOUNTER → 2024-11-01 11:16 | Outpatient (CLI) | payer OTHER, SELFPAY ==
[2024-11-01 11:48] LABS: Add Manual Diff / Slide Review NO; Basophils Absolute Auto 0 /uL (0-100); Basophils Percent Auto 0.5 % (0-2); Eosinophils Absolute Auto 100 /uL (0-450); Eosinophils Percent Auto 1.2 % (2-4); Hematocrit 42.1 % (36-46); Hemoglobin 14.6 g/dL (12.0-16.0); Lymphocytes Absolute Auto 1700 /uL (1100-4500); Lymphocytes Percent Auto 20.5 % (25-40); Mean Corpuscular HGB Conc 34.6 % (30-36); Mean Corpuscular Hemoglobin 33.8 PG (26-34); Mean Corpuscular Volume 97.7 fL (80-100); Monocytes Absolute Auto 600 /uL (0-900); Monocytes Percent Auto 7.6 % (3-14); Neutrophils Absolute Auto 5900 /uL (1500-7000); Neutrophils Percent Auto 70.2 % (50-75); Platelet Count 232 X10^3/uL (150-400); Red Blood Cell Count 4.31 X10^6/uL (4.0-5.2); Red Cell Distribution Width 13.8 % (11.6-14.8); White Blood Cell Count 8.4 X10^3/uL (4.5-11.0)
[2024-11-01 12:08] LABS: HEMOLYSIS < 15 (0-50); Iron 126 ug/dL (37-170)
[2024-11-01 12:09] LABS: Alanine Aminotransferase 33 IU/L (<35); Albumin 4.2 g/dL (3.5-5.0); Albumin Globulin Ratio 1.4 (1.0-2.8); Alkaline Phosphatase 105 U/L (38-126); Aspartate Aminotransferase 39 IU/L (14-36); BUN Creatinine Ratio 11.8 (6-22); Bilirubin Total 0.8 mg/dL (0.2-1.3); Blood Urea Nitrogen 10 mg/dL (7-17); Carbon Dioxide 22 mmol/L (22-32); Chloride 105 mmol/L (98-107); Cholesterol 220 mg/dL (140-199); Estimated Glomerular Filt Rate > 60 mL/min (>60); Glucose 105 mg/dL (70-99); HDL Cholesterol 81 mg/dL (40-60); HEMOLYSIS < 15 (0-50); LDL Cholesterol Calculated 91 mg/dL (<100); Potassium 4.4 mmol/L (3.4-5.1); Sodium 136 mmol/L (137-145); Total Protein 7.2 g/dL (6.3-8.2); Triglycerides 240 mg/dL (35-150)
[2024-11-01 12:19] LABS: Percent Iron Saturation 47 % (15-50); Total Iron Binding Capacity 269 ug/dL (265-497); Transferrin 251 mg/dL (206-381)
[2024-11-01 12:27] LABS: Vitamin D 25 Hydroxy (D3) 43.2 ng/mL (30.0-100.0)
[2024-11-01 12:43] LABS: Ferritin 79 ng/mL (11-264)
[2024-11-01 12:57] LABS: Vitamin B12 > 1000 pg/mL (239-931)
== END ==
PROVIDERS: PCP Family Medicine; Referring Provider Family Medicine; Visit Provider Family Medicine
DX: E61.1 Iron deficiency (principal); Z78.9 Other specified health status; E53.8 Deficiency of other specified B group vitamins; D64.9 Anemia, unspecified; E66.9 Obesity, unspecified; E55.9 Vitamin D deficiency, unspecified
CPT/HCPCS: 36415; 80053; 80061; 82306; 82607; 82728; 83540; 83550; 84443; 85025

== ENCOUNTER → 2025-03-24 14:51 | Outpatient (CLI) | payer OTHER, SELFPAY ==
--- NOTE | 2025-03-24 14:52 | DI.MG.S_ITS ---
MM screening mammo BI: 03/24/2025. BI-RADS: 1 CLINICAL: 49-year old female for bilateral screening mammogram. Tyrer-Cuzick lifetime risk of 14.1%. Current reported family history of breast cancer: mother. PRIOR EXAMS 03/20/2024, 03/14/2023, 03/05/2022, 03/01/2021. MAMMOGRAPHY TECHNIQUE: 2D and 3D (tomosynthesis) digital mammographic views obtained, with additional images as needed for full coverage. Current study was also evaluated with a Computer Aided Detection (CAD) system. DENSITY B. There are scattered areas of fibroglandular density. MAMMOGRAPHY FINDINGS Bilateral: No suspicious mass, asymmetry, microcalcification, or other abnormality seen. No significant change from comparison. IMPRESSION: * No evidence of malignancy. RECOMMENDATIONS Bilateral * Annual screening mammography. OVERALL ASSESSMENT CATEGORY BI-RADS-1: Negative. The [employer] recommends annual screening mammography beginning at age 40 for women with average risk of breast cancer. ELECTRONICALLY SIGNED: Jarrett De Jesus M.D. on 03/25/2025 at 11:26:31 AM PT Interpreting Station ID: [id number]
== END ==
LOC: MAMMO 14:51
PROVIDERS: PCP Family Medicine; Referring Provider Family Medicine; Visit Provider Family Medicine
DX: Z12.31 Encounter for screening mammogram for malignant neoplasm of breast (principal); Z80.3 Family history of malignant neoplasm of breast
CPT/HCPCS: 77063; 77067

== ENCOUNTER → 2025-05-05 12:21 | Outpatient (CLI) | payer OTHER, SELFPAY ==
[2025-05-05 13:34] LABS: HEMOLYSIS 31 (0-50); Iron 122 ug/dL (37-170)
[2025-05-05 13:45] LABS: Percent Iron Saturation 36 % (15-50); Total Iron Binding Capacity 336 ug/dL (265-497); Transferrin 304 mg/dL (206-381)
[2025-05-05 14:33] LABS: Alanine Aminotransferase 29 IU/L (<35); Albumin 4.7 g/dL (3.5-5.0); Albumin Globulin Ratio 1.5 (1.0-2.8); Alkaline Phosphatase 94 U/L (38-126); Blood Urea Nitrogen 15 mg/dL (7-17); Calcium 9.7 mg/dL (8.4-10.2); Carbon Dioxide 18 mmol/L (22-32); Chloride 107 mmol/L (98-107); Estimated Glomerular Filt Rate > 60 mL/min (>60); Globulin 3.2 g/dL (1.7-4.1); Glucose 101 mg/dL (70-99); HEMOLYSIS 21 (0-50); Potassium 4.5 mmol/L (3.4-5.1); Sodium 139 mmol/L (137-145); Total Protein 7.9 g/dL (6.3-8.2)
[2025-05-05 16:20] LABS: Ferritin 64 ng/mL (11-264)
[2025-05-05 17:43] LABS: Vitamin B12 768 pg/mL (239-931)
== END ==
PROVIDERS: PCP Family Medicine; Referring Provider Family Medicine; Visit Provider Family Medicine
DX: D72.819 Decreased white blood cell count, unspecified (principal); E53.8 Deficiency of other specified B group vitamins; E61.1 Iron deficiency
CPT/HCPCS: 36415; 80053; 82607; 82728; 83540; 83550